=== PATIENT | female | born 1935 | race Caucasian/White ===

== ENCOUNTER → 2017-08-24 | Outpatient (CLI) | payer OTHER ==
[~2017-08-24] MED LIST: ACETAMINOPHEN325 M1 PO; APAP500 PO; ASPIR 8181 MG PO; BACTRIM DS TAB1 EACH PO; BENADRYL25 MG PO; CELEBREX 200 M200 M1 PO; CELEBREX 200 M200 MG PO; CENTRUM SILVER1 EAC4 PO; COLACE100 MG PO; COREG6.25 MG PO; COUMADIN 2.5MG2.5 M1 PO; COUMADIN 5 MG TA5 M1 PO; COZAAR 25 MG TA25 M1 PO; DIOVAN160 MG PO; ELIQUIS5 MG PO; ENDUR-ACIN500 MG PO; FAMOTIDINE 20 M20 MG PO; FISH OIL 1,0001 EAC5 PO; FISH OIL 1,0001 EAC7 PO; KEFLEX500 M1 PO; KLOR-CON 1010 MEQ PO; LASIX 20 MG TAB20 MG PO; LASIX 40 MG TAB40 M1 PO; LIPITOR40 MG PO; MAG DELAY64 MG PO; MAG OX PO; MECLIZINE HCL25 M1 PO; MEDROL DOSPAK21 TA1 PO; MULTIVITAMINS PO; MYLANTA 12 OZ355 M1 PO; NIACIN 500 MG500 M1 PO; NORVASC5 MG PO; PILOCARPINE HCL5 M1 PO; PREDNISONE 10 M10 M1 PO; PRILOSEC 20 MG20 MG PO; SLO-NIACIN250 MG PO; SORINE 80 MG TA80 M1 PO; SORINE 80 MG TA80 MG PO; TOPROL XL100 MG PO; TOPROL XL50 MG PO; TRAMADOL 50 MG50 MG PO; TYLENOL325 MG PO; VITAMINC500 PO; VITCB500GO PO; VOLTAREN GEL 1100 G2 TOP; [UNRECOGNIZED DRUG - OTHER] PO
--- NOTE | ~2017-08-24 | HC ---
[facility] [place] [address] CONSULTATION Name: KAJAL GRIFFITH [id number] Admission: 08/24/17 Attend Phys: Denzel Leahy DO Discharge: Date of : 33 Report #: [id number] THIS REPORT FOR: //name// CC: Denzel PACHECO PCP DATE OF SERVICE: 08/24/2017 CHIEF COMPLAINT: Ulceration on the right foot. HISTORY OF PRESENT ILLNESS: This is an 82-year-old female patient who I have been asked to see today in the senior's clinic. She has had a chronic ulceration on her right foot near the first MTP joint, the original onset is unknown. She has some deformity to her foot and has had chronic ulceration with callus formation that has been noted. She was seen today by Layla Glynn, who has requested Wound Care consultation. PAST MEDICAL HISTORY: Positive for Sjogren's, history of chronic atrial fibrillation, congestive heart failure, previous cardiac arrest and was hospitalized in 07/2017. She denies pain, but does note some odor from her foot. She is uncertain as to how to care for and I have been asked to see her in this regard. ALLERGIES: CODEINE AND SULFA. MEDICATIONS: Include omega-3 fish oil, atorvastatin, Celebrex, pilocarpine, vitamin C, Ultram, Diovan, niacin, multivitamin with minerals, Mag-Ox, as well as Eliquis, carvedilol, amlodipine, Lasix, potassium chloride. SOCIAL HISTORY: Negative for current alcohol or tobacco use. FAMILY HISTORY: Noncontributory. REVIEW OF SYSTEMS: CONSTITUTIONAL: The patient denies fever, chills, or weight loss. NEUROLOGICAL: The patient has focal weakness. ENT: The patient denies earache, nasal drainage, or sore throat. CARDIOVASCULAR: The patient denies chest pain, palpitations, or diaphoresis. PULMONARY: The patient denies cough or shortness of breath. GASTROINTESTINAL: The patient denies nausea, vomiting, diarrhea, or abdominal pain. ORTHOPEDIC: The patient does note ulceration on her right foot. Other systems in a 12-point review of systems are negative. PHYSICAL EXAMINATION: [facility] [address] [place] [address] CONSULTATION Name: AKJAL GRIFFITH Room #: REG [facility]#: [id number] Admission: 08/24/17 Attend Phys: Denzel Leahy DO Discharge: Date of : 33 Report #: [id number] VITAL SIGNS: Today include blood pressure 141/64, temperature is 97.7, pulse 67, respiratory rate 18. GENERAL: This is a chronically ill-appearing female patient appears to be in minimal distress. HEENT: Normocephalic. Nose and throat clear. She is hard of hearing. NECK: Supple. LUNGS: Clear. HEART: Irregular rate and rhythm without murmur. ABDOMEN: Soft, bowel sounds present. EXTREMITIES: Demonstrate diminished yet somewhat palpable distal pulses. She has slightly delayed capillary refill involving her right great toe. She has ulceration on the plantar aspect of the right first MTP. It is covered with callus and some necrotic tissue, which I have debrided and documented this in a separate notation. The base once debridement was accomplished is clean and granulating. Culture was obtained. CLINICAL IMPRESSION: 1. Ulceration of the plantar aspect of the right foot at the first metatarsophalangeal joint. 2. Deformity of the right foot with excessive dorsiflexion of the right great toe at the metatarsophalangeal joint. 3. Sjogren disease. 4. Coronary artery disease. 5. Atrial fibrillation, on chronic anticoagulation with Eliquis. RECOMMENDATIONS: At this point in time, cultures and sensitivities have been obtained. We will place her on doxycycline 100 mg b.i.d. empirically. Recommend topical silver alginate and a secondary gauze dressing. I would like to follow her up in the clinic in approximately 10-14 days. No imaging undertaken at this time. I appreciate being asked to see her in consultation. <ELECTRONICALLY SIGNED> By: Bryce Rangel MD 08/26/17 0853 1709 0040 Bryce Rangel MD /nt
--- NOTE | ~2017-08-24 | P ---
[facility] [address] PROCEDURE REPORT Name: KAJAL GRIFFITH Room #: REG [facility]#: [id number] Admission: 08/24/17 Attend Phys: Denzel Leahy DO Discharge: Date of : 33 Report #: [id number] THIS REPORT FOR: //name// CC: Denzel Leahy NO PCP DATE OF SERVICE: 08/24/2017 CHIEF COMPLAINT: Ulceration of the right foot. 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 PROCEDURE PERFORMED: Sharp surgical debridement of ulceration of the right foot. FINDINGS: None. SPECIMENS OBTAINED: Culture and sensitivity. ESTIMATED BLOOD LOSS: 1 mL. PREPROCEDURE MEASUREMENT: 3 cm x 2.5 cm x 0.5 cm. POSTPROCEDURE MEASUREMENT: 3.8 cm x 2.9 cm x 0.5 cm. DESCRIPTION OF PROCEDURE: After appropriate verbal and informed consent was obtained with the patient, I have used a #15 bladed scalpel and tissue forceps. The area was prepped and draped in the usual sterile fashion. No anesthesia was required. I have used a scalpel and forceps to sharply debride the necrotic tissue including skin and necrotic subcutaneous tissue down to a healthy clean bleeding base. Hemostasis was obtained with direct pressure. Culture and sensitivity was obtained from the deeper base of the wound. The wound appeared to be fairly clean and granulating once the necrotic tissue was removed. The patient tolerated the procedure well. <ELECTRONICALLY SIGNED> By: Bryce Rangel MD 08/26/17 0853 1723 2357 Bryce Rangel MD /nt
== END ==
LOC: SEN 08:51
DX: S92.102A Unspecified fracture of left talus, initial encounter for closed fracture (principal); M35.00 Sjogren syndrome, unspecified; R53.81 Other malaise; X58.XXXA Exposure to other specified factors, initial encounter; Y93.89 Activity, other specified; Y92.89 Other specified places as the place of occurrence of the external cause; Y99.8 Other external cause status

== ENCOUNTER 2017-09-02 10:37 | Emergency (ER) | payer OTHER ==
[~2017-09-02] VITALS: Ht 160 cm; Wt 68.0 kg
--- NOTE | ~2017-09-02 | EKG ---
[address] [address] ELECTROCARDIOGRAM REPORT Name: KAJAL GRIFFITH Room #: [facility]#: [id number] Admission: 09/02/17 Attend Phys: Discharge: 09/02/17 Date of : 33 Report #: [id number] THIS REPORT FOR: //name// [facility] ED Test Date: 2017-09-02 Test Time: 11:05:41 Pat Name: KAJAL GRIFFITH Department: Room: Gender: F Radiographic Technologist: cwroslyn : 1935 Requested By: Christina Shelby Order Number: [id number] MD: Aamir Rey Measurements Intervals [place] Rate: 58 P: [place]: QRS: -49 QRSD: 130 T: 35 QT: 449 QTc: 442 Interpretive Statements Atrial fibrillation Compared to ECG 07/11/2017 09:39:38 No significant changes Electronically Signed On 09-03-2017 8:27:16 MOTORCYCLE REPAIRER by Aamir Rey [email or web address] <ELECTRONICALLY SIGNED> By: Aamir Rey MD 09/03/17 0827 1105 1105 MD ANDREA Osborn
[~2017-09-02 10:37] MED LIST changes: -ASPIR 8181 MG PO; -COZAAR 25 MG TA25 M1 PO; -KEFLEX500 M1 PO; -LASIX 20 MG TAB20 MG PO; -TYLENOL325 MG PO; -VOLTAREN GEL 1100 G2 TOP
[2017-09-02 10:50] LABS: HEMATOCRIT 33.1 % (37.0-47.0); HEMOGLOBIN 11.3 gm/dL (12.0-15.0); MCH 32.5 pg (26.0-34.0); MCHC 34.2 g/dL (28.0-37.0); MCV 95.1 fL (80.0-100.0); PLATELET COUNT 181 thou/uL (150-400); RBC 3.48 mil/uL (4.20-5.00); RDW 12.1 % (10.5-14.5); WBC 5.9 thou/uL (4.0-11.0)
[2017-09-02 10:59] LABS: ANION GAP 4 mmol/L (7-16); BUN 28 mg/dL (7-18); CALCIUM 9.7 mg/dL (8.5-10.1); CHLORIDE 99 mmol/L (98-107); CO2 31 mmol/L (21-32); CREATININE 0.9 mg/dL (0.6-1.0); GLUCOSE 90 mg/dL (74-106); POTASSIUM 4.3 mmol/L (3.5-5.1); SODIUM 134 mmol/L (136-145)
[2017-09-02 11:08] LABS: ALBUMIN 3.4 g/dL (3.4-5.0); SGOT 29 U/L (15-37); SGPT 27 U/L (30-65); TOTAL BILIRUBIN 0.6 mg/dL (<0.1-1.0); TOTAL PROTEIN 7.6 g/dL (6.4-8.2); TROPONIN-I < 0.04 ng/mL (<0.06)
[2017-09-02 11:30] LABS: ABSOLUTE NEUTROPHILS 4.4 thou/uL (1.4-8.2)
[2017-09-02 13:32] VITALS: BP 148/75
[2017-09-10] MEDS ORDERED: COZAAR 25 MG TA25 M1 PO (13:37)
[2017-09-10] MEDS ORDERED: ASPIR 8181 MG PO (13:38)
[2017-09-10] MEDS ORDERED: LASIX 20 MG TAB20 MG PO (13:38)
== END 2017-09-02 13:32 | disposition home or self-care (01) ==
LOC: ER 10:37
PROVIDERS: Physician Assistant
DX: R06.00 Dyspnea, unspecified (principal); I48.2 Chronic atrial fibrillation; G62.9 Polyneuropathy, unspecified; Z90.710 Acquired absence of both cervix and uterus; Z88.5 Allergy status to narcotic agent; Z88.2 Allergy status to sulfonamides

== ENCOUNTER → 2017-09-07 | Outpatient (CLI) | payer OTHER ==
[~2017-09-07] MED LIST changes: +ASPIR 8181 MG PO; +COZAAR 25 MG TA25 M1 PO; +KEFLEX500 M1 PO; +LASIX 20 MG TAB20 MG PO; +TYLENOL325 MG PO; +VOLTAREN GEL 1100 G2 TOP
== END ==
LOC: SEN 11:53
DX: I48.91 Unspecified atrial fibrillation (principal)

== ENCOUNTER → 2017-09-07 | Outpatient (CLI) | payer OTHER | LOC: HYPER 06:52 | DX: L97.512 Non-pressure chronic ulcer of other part of right foot with fat layer exposed (principal); G62.9 Polyneuropathy, unspecified; L84 Corns and callosities; I11.0 Hypertensive heart disease with heart failure; I50.9 Heart failure, unspecified; I48.2 Chronic atrial fibrillation; E78.5 Hyperlipidemia, unspecified; Z87.891 Personal history of nicotine dependence; Z90.710 Acquired absence of both cervix and uterus ==

== ENCOUNTER → 2017-09-21 | Outpatient (CLI) | payer OTHER | LOC: HYPER 09:40 | DX: L97.512 Non-pressure chronic ulcer of other part of right foot with fat layer exposed (principal); G90.09 Other idiopathic peripheral autonomic neuropathy; I48.2 Chronic atrial fibrillation; I11.0 Hypertensive heart disease with heart failure; I50.9 Heart failure, unspecified; E78.5 Hyperlipidemia, unspecified; Z89.422 Acquired absence of other left toe(s); Z90.710 Acquired absence of both cervix and uterus; Z96.612 Presence of left artificial shoulder joint; Z87.891 Personal history of nicotine dependence ==

== ENCOUNTER → 2017-09-21 | Outpatient (CLI) | payer OTHER | LOC: SEN 09:05 | DX: N18.9 Chronic kidney disease, unspecified (principal); I73.9 Peripheral vascular disease, unspecified; F41.9 Anxiety disorder, unspecified; M35.00 Sjogren syndrome, unspecified ==

== ENCOUNTER 2017-12-24 16:12 | Inpatient (IN) | payer OTHER ==
[~2017-12-24] VITALS: Ht 160 cm; Wt 73.0 kg
--- NOTE | ~2017-12-24 | EEG ---
[facility] [place] [address] ELECTROENCEPHALOGRAM Name: KAJAL GRIFFITH Room #: 451-P ADM IN M.R.#: [id number] Admission: 12/24/17 Attend Phys: Adan Paul MD Discharge: Date of : 33 Report #: [id number] THIS REPORT FOR: //name// [facility] DATE OF SERVICE: 12/25/2017 This patient is evaluated for weakness and somnolence. EEG was done by placing the electrodes by standard 10-20 system of electrode placement. Both referential and sequential montages were used for recording. Background activity in this patient's EEG is about 7-8 Hz and 30 microvolt. There is a symmetrical activity. Photic stimulation is unremarkable. Throughout the record, no active epileptiform activity was noticed and the patient was somnolent throughout the record. IMPRESSION: This is an abnormal electroencephalogram because it is disorganized and poorly formed. That is a nonspecific abnormality, which can occur with encephalopathy, effect of psychotropic medication, dementia, etc. Clinical correlation is recommended. <ELECTRONICALLY SIGNED> By: Niko Harmon MD 12/27/172021 24 30 Niko Harmon MD /nt
--- NOTE | ~2017-12-24 | EKG ---
[address] [place] [address] ELECTROCARDIOGRAM REPORT Name: KAJAL GRIFFITH Dilma Room #: 451-P ADM IN .R.#: [id number] Admission: 12/24/17 Attend Phys: Adan Paul MD Discharge: Date of : 33 Report #: [id number] THIS REPORT FOR: //name// [facility] ED Test Date: 2017-12-24 Test Time: 16:19:10 Pat Name: KAJAL GRIFFITH Department: Room: Gender: F Medical Advisor: FLORINDA : 1935 Requested By: Narcisa Freeman Order Number: [id number] MD: Aamir Rey Measurements Intervals [place] Rate: 94 P: [place]: QRS: -52 QRSD: 117 T: 103 QT: 346 QTc: 433 Interpretive Statements Atrial fibrillation LVH with IVCD, LAD and secondary repol abnrm Baseline wander in lead(s) V3 Compared to ECG 09/02/2017 11:05:41 Intraventricular conduction delay now present Left ventricular hypertrophy now present Early repolarization now present Electronically Signed On 12-25-2017 7:51:45 CDT by Aamir Rey [email or web address] <ELECTRONICALLY SIGNED> By: Aamir Rey MD 12/25/17 0751 1619 1619 Aamir Rey MD /EPI
--- NOTE | ~2017-12-24 | HC ---
[facility] [place] [address] CONSULTATION Name: KAJAL GRIFFITH Room #: 451-P ADM IN M.R.#: [id number] Admission: 12/24/17 Attend Phys: Adan Paul MD Discharge: Date of : 33 Report #: [id number] THIS REPORT FOR: //name// [facility] DATE OF SERVICE: 12/25/2017 HISTORY OF PRESENT ILLNESS: This is an 82-year-old female patient who was evaluated by me for what looks like speech difficulty. I discussed the patient with the night nurses and this morning's nurses. I talked to the patient and reviewed the records. The patient is being admitted with multiple symptoms. Neurological consultation is requested because of the possibility of stroke. She indicated she was confused, but she also had an infection for which she has antibiotics and then she had an allergic reaction and she got some Benadryl. So, she was confused and was having some speech difficulty. It has all become better. Some of the records indicate that she did have some facial problem with it, but that history is not documented. She is not having any associated headache. She indicates the confusion was severe when it happened, but it is better. She also had some slurring of the speech, which is still there. I do not know what the baseline is. No family member is available. She also felt weak all over the body. REVIEW OF SYSTEMS: Positive for multiple problems associated with present symptomatology. She had some headache. She was having some slurred speech. She has some difficulty with ambulation. She is very hard of hearing in the baseline, prior history of hysterectomy and myocardial infarction. She is on chronic anticoagulation. She had both shoulder replaced. She had a history of neuropathy and apparently a history of Sjogren's disease. I carried out the 14-point review of systems and this was a relevant 14-point review of systems. She did have some chest pain, but not much respiratory difficulty. She did not have much GI or symptoms. She is not complaining of significant back pain. She does have some fever. There are no new dermatological, hematological, psychiatric, throat symptoms. She did have allergic reaction. PAST MEDICAL HISTORY: Positive for PR. FAMILY HISTORY: Negative for early age stroke. SOCIAL HISTORY: She does not smoke. PHYSICAL EXAMINATION: The patient's examination indicate higher function is very difficult to carry out because the patient is very hard of hearing. She could tell me what month it is, but did not tell me the exact date. She knows what hospital she is in. Her memory and fund of knowledge is somewhat [facility] [address] [place] [address] CONSULTATION Name: KAJAL GRIFFITH Room #: 451-P [facility] IN M.R.#: [id number] Admission: 12/24/17 Attend Phys: Adan Paul MD Discharge: Date of : 33 Report #: [id number] diminished. She does have hesitation, so her speech may be impaired, but she also may have some aphasia, it is difficult to tell, but hesitation of the speech is definitely there. Cranial nerve examination 2-12 was attempted. I do not see any facial weakness. Her cooperation is not enough to do any good visual field evaluation. I could not do the fundus examination in this patient because she could not cooperate. She moves all 4 extremities. She is restricted in both shoulders that is her baseline. Her reflexes are diminished. I tried to do the position sense and she is so hard of hearing, she could not understand what I was saying. Her tone looks unremarkable. There is no cerebellar sign. She is moderately built individual who does not have any dysmorphic features of eyes, ears and face. Her hearing is markedly impaired. Her vision is intact. Pulses are difficult to feel and there may be minimum edema. Heart is irregular consistent with history of atrial fibrillation, no respiratory difficulty or rhonchi was noticed. Blood pressure is 152/70, respirations 16, pulse is 91, temperature is 102. LABORATORY DATA: White count is 11.0 and the last sodium was 130. IMPRESSION: This patient is complaining of symptom which can be because of encephalopathy or stroke. Encephalopathy is being considered because of allergic reaction and other problem she has, possibility of dominant hemispheric cerebrovascular accident need to be excluded. So far, the workup is unremarkable, but MRI is pending. She is slightly hyponatremic and that may also contribute to her symptoms. RECOMMENDATIONS: I discussed the situation with the patient. Her anticoagulation was held. From neurological perspective, it would be okay to restart her on anticoagulation because even if she had a stroke, it will be a small stroke as it is not seen on the CT, and if she had a stroke on anticoagulation, she will be on a very high risk of having a stroke without anticoagulation. I have asked the nurses to talk to the admitting doctor and if they want to restart the anticoagulation will be okay and hopefully we will get the MRI done to clarify the number further. All of it was discussed with the patient and she is agreeable with this plan. <ELECTRONICALLY SIGNED> By: Nkio Harmon MD 12/27/17 2020 0840 44 Niko Harmon MD /nt
--- NOTE | ~2017-12-24 | 2DMMODE ---
[facility] [address] [place] [address] 2 D/M-MODE ECHOCARDIOGRAM Name: KAJAL GRIFFITH Room #: 451-P [facility] IN [facility].#: [id number] Admission: 12/24/17 Attend Phys: Adan Paul MD Discharge: Date of : 33 Date of Service: 12/28/17 0950 Report #: [id number] THIS REPORT FOR: //name// APPROVED REPORT Study performed: 12/28/2017 08:03:09 EXAM: Comprehensive 2D, Doppler, and color-flow Echocardiogram Patient Location: Bedside Room #: 135 Status: 72 BSA: 1.76 HR: 86 bpm BP: 135/72 mmHg Other Information Study Quality: Good Indications Eval for pulm htn, history of ASD closure 2D Dimensions RVDd: 40.24 mm LVEF(%): 36.13 (>50%) IVSd: 12.54 (7-11mm) LVOT Diam: 22.76 (18-24mm) LVDd: 43.63 mm PWd: 12.09 (7-11mm) Ascending Ao: 32.95 (22-36mm) LVDs: 36.13 (25-40mm) Aortic Root: 31.41 mm IVC: 22.00 mm Krishna's LVEF: 36.13 % Volumes Left Atrial Volume (Systole) Single Plane 4CH: 130.63 mL Single Plane 2CH: 94.11 mL LA ESV Index: 68.00 mL/m2 Aortic Valve AoV Peak Jn.: 1.25 m/s AO Peak Gr.: 6.23 mmHg LVOT Max P.51 mmHg LVOT Max V: 0.61 m/s HUDSON Vmax: 2.00 cm2 Mitral Valve MV Decel. Time: 177.85 ms MV E Max Jn.: 0.82 m/s IVRT: 100.35 ms [facility] [place] [address] 2 D/M-MODE ECHOCARDIOGRAM Name: KAJAL GRIFFITH Room #: 451-P [facility] IN ..#: [id number] Admission: 12/24/17 Attend Phys: Adan Paul MD Discharge: Date of : 33 Date of Service: 12/28/17 0950 Report #: [id number] Pulmonary Valve PV Peak Jn.: 0.67 m/s PV Peak Gr.: 1.80 mmHg Pulmonary Vein P Vein S: 0.43 m/s P Vein D: 0.72 m/s P Vein S/D Ratio: 0.60 Tricuspid Valve TR Peak Jn.: 3.32 m/s RAP Estimate: 10.00 mmHg TR Peak Gr.: 44.07 mmHg PA Pressure: 54.00 mmHg Left Ventricle The left ventricle is normal size. There is normal LV segmental wall motion. Mild concentric left ventricular hypertrophy. The left ventricular systolic function is normal. The left ventricular ejection fraction is within the normal range. LVEF is 50-55%. Right Ventricle The right ventricle is normal size. The right ventricular systolic function is normal. Atria Left atrium is severely dilated. Patient states a history of ASD closure 8-9 years ago. No shunting visualized by color doppler. Right atrium is severely dilated. Aortic Valve Mild aortic valve sclerosis. No aortic regurgitation is present. There is no aortic valvular stenosis. Mitral Valve Mitral valve leaflets are mildly thickened. Moderate mitral regurgitation No evidence of mitral valve stenosis. Tricuspid Valve The tricuspid valve is normal in structure. Moderate tricuspid regurgitation. PAP is estimated at 54 mmHg. Pulmonic Valve The pulmonary valve is normal in structure. Trace pulmonic regurgitation. Great Vessels [facility] [address] [place] [id number] 2 D/M-MODE ECHOCARDIOGRAM Name: KAJAL GRIFFITH Room #: 451-P [facility] IN [facility]#: [id number] Admission: 12/24/17 Attend Phys: Adan Paul MD Discharge: Date of : 33 Date of Service: 12/28/17 0950 Report #: [id number] The aortic root is normal in size. IVC is mildly dilated and collapses >50% with inspiration. Pericardium There is no pericardial effusion. <Conclusion> The left ventricular systolic function is normal. There is normal LV segmental wall motion. LVEF 50-55%. Both atria are severely dilated. Percutaneous closure device seen across the atrial septum; no shunting seen Mild aortic valve sclerosis. No aortic regurgitation or stenosis Mitral valve leaflets are mildly thickened. Moderate mitral regurgitation Moderate tricuspid regurgitation. Pulmonary artery pressure estimated at 54 mmHg. There is no pericardial effusion. <ELECTRONICALLY SIGNED> By: Duy Sandoval MD, FACC 12/28/1750 9 9 Duy Sandoval MD, FACC /INF
[~2017-12-24 16:12] MED LIST changes: -KEFLEX500 M1 PO; -TYLENOL325 MG PO; -VOLTAREN GEL 1100 G2 TOP
[2017-12-24 16:13] VITALS: BP 145/69
[2017-12-24 16:39] LABS: ABSOLUTE NEUTROPHILS 8.9 thou/uL (1.4-8.2); BASOPHILS 0.5 % (0.0-2.0); EOSINOPHILS 0.4 % (0.0-3.0); HEMATOCRIT 36.9 % (37.0-47.0); HEMOGLOBIN 12.6 gm/dL (12.0-15.0); LYMPHOCYTES 6.9 % (24.0-44.0); MCHC 34.2 g/dL (28.0-37.0); MCV 93.8 fL (80.0-100.0); MONOCYTES 6.8 % (1.0-8.0); PLATELET COUNT 170 thou/uL (150-400); POLYS 85.4 % (36.0-66.0); RBC 3.93 mil/uL (4.20-5.00); RDW 12.4 % (10.5-14.5); WBC 10.4 thou/uL (4.0-11.0)
[2017-12-24 16:48] LABS: ANION GAP 10 mmol/L (7-16); BUN 20 mg/dL (7-18); CALCIUM 9.3 mg/dL (8.5-10.1); CHLORIDE 99 mmol/L (98-107); CO2 25 mmol/L (21-32); CREATININE 0.8 mg/dL (0.6-1.0); GLUCOSE 106 mg/dL (74-106); POTASSIUM 4.1 mmol/L (3.5-5.1); SODIUM 134 mmol/L (136-145)
[2017-12-24 16:57] LABS: TROPONIN-I < 0.04 ng/mL (<0.06)
[2017-12-24 17:14] VITALS: BP 145/69
[2017-12-24 17:45] LABS: URINE BILIRUBIN NEGATIVE (Negative); URINE BLOOD NEGATIVE (Negative); URINE CLARITY CLEAR; URINE COLOR YELLOW; URINE GLUCOSE-RANDOM* NEGATIVE (Negative); URINE KETONES TRACE (Negative); URINE LEUKOCYTES TRACE (Negative); URINE NITRITE NEGATIVE (Negative); URINE PROTEIN (DIPSTICK) NEGATIVE (Negative); URINE SPECIFIC GRAVITY 1.015 (1.005-1.035); URINE UROBILINOGEN 0.2 E.U./dl (0.2-1.0)
[2017-12-24 18:38] VITALS: BP 169/88
[2017-12-24 19:13] VITALS: BP 156/71
[2017-12-25 04:34] VITALS: BP 140/50
[2017-12-25 05:24] LABS: HEMATOCRIT 35.8 % (37.0-47.0); HEMOGLOBIN 12.4 gm/dL (12.0-15.0); MCH 32.3 pg (26.0-34.0); MCHC 34.5 g/dL (28.0-37.0); MCV 93.6 fL (80.0-100.0); RBC 3.83 mil/uL (4.20-5.00); RDW 12.3 % (10.5-14.5)
[2017-12-25 05:40] LABS: ANION GAP 9 mmol/L (7-16); BUN 14 mg/dL (7-18); CHLORIDE 96 mmol/L (98-107); CO2 25 mmol/L (21-32); CREATININE 0.9 mg/dL (0.6-1.0); GLUCOSE 119 mg/dL (74-106); POTASSIUM 3.4 mmol/L (3.5-5.1); SODIUM 130 mmol/L (136-145)
[2017-12-25 07:46] LABS: MAGNESIUM 1.6 mg/dL (1.8-2.4); TROPONIN-I < 0.04 ng/mL (<0.06)
[2017-12-25 08:04] VITALS: BP 152/70
[2017-12-25 15:36] LABS: TSH 0.784 uIU/mL (0.358-3.740)
[2017-12-25 15:46] LABS: CHOLESTEROL 112 mg/dL (<200); HDL CHOLESTEROL 68 mg/dL (>40); LDL CHOLESTEROL 37 mg/dL (<100); TC:HDL 1.6 Ratio (Not establshd); TRIGLYCERIDE 39 mg/dL (<150); VLDL 8 mg/dL (<40)
[2017-12-25 16:00] VITALS: BP 122/58
[2017-12-25 16:15] LABS: FOLIC ACID 34.7 ng/mL (8.6-58.9)
[2017-12-25 19:28] VITALS: BP 144/67
[2017-12-26 03:23] VITALS: BP 140/55
[2017-12-26 04:58] LABS: BASOPHILS 0.5 % (0.0-2.0); EOSINOPHILS 0.2 % (0.0-3.0); HEMATOCRIT 37.2 % (37.0-47.0); HEMOGLOBIN 12.6 gm/dL (12.0-15.0); LYMPHOCYTES 8.5 % (24.0-44.0); MCH 31.8 pg (26.0-34.0); MCHC 33.9 g/dL (28.0-37.0); MCV 93.9 fL (80.0-100.0); MONOCYTES 10.1 % (1.0-8.0); PLATELET COUNT 146 thou/uL (150-400); POLYS 80.7 % (36.0-66.0); RBC 3.96 mil/uL (4.20-5.00); RDW 12.4 % (10.5-14.5); WBC 11.2 thou/uL (4.0-11.0)
[2017-12-26 05:12] LABS: CREATININE 0.8 mg/dL (0.6-1.0); POTASSIUM 3.1 mmol/L (3.5-5.1)
[2017-12-26 05:50] LABS: LARGE PLATELETS RARE
[2017-12-26 08:30] VITALS: BP 143/68
[2017-12-26 16:07] VITALS: BP 138/70
[2017-12-26 20:00] VITALS: BP 117/58
[2017-12-27 00:30] VITALS: BP 131/61
[2017-12-27 04:02] VITALS: BP 140/78
[2017-12-27 04:16] LABS: CALCIUM 8.5 mg/dL (8.5-10.1); CREATININE 0.8 mg/dL (0.6-1.0); MAGNESIUM 1.9 mg/dL (1.8-2.4); POTASSIUM 3.7 mmol/L (3.5-5.1)
[2017-12-27 08:00] VITALS: BP 154/73
[2017-12-27 16:00] VITALS: BP 121/64
[2017-12-27 17:43] VITALS: BP 154/73
[2017-12-27 19:44] VITALS: BP 139/75
[2017-12-28 04:20] LABS: CALCIUM 8.8 mg/dL (8.5-10.1); CREATININE 0.7 mg/dL (0.6-1.0); POTASSIUM 4.1 mmol/L (3.5-5.1)
[2017-12-28 04:21] VITALS: BP 144/82
[2017-12-28 04:22] VITALS: BP 135/72; BP 138/63
[2017-12-28 04:23] LABS: BASOPHILS 0.4 % (0.0-2.0); EOSINOPHILS 2.3 % (0.0-3.0); HEMATOCRIT 34.5 % (37.0-47.0); HEMOGLOBIN 11.9 gm/dL (12.0-15.0); LYMPHOCYTES 8.6 % (24.0-44.0); MCH 32.1 pg (26.0-34.0); MCHC 34.5 g/dL (28.0-37.0); MCV 93.2 fL (80.0-100.0); MONOCYTES 9.8 % (1.0-8.0); PLATELET COUNT 182 thou/uL (150-400); POLYS 78.9 % (36.0-66.0); RDW 11.9 % (10.5-14.5); WBC 10.2 thou/uL (4.0-11.0)
[2017-12-28 08:00] VITALS: BP 147/66
[2017-12-28] MEDS ORDERED: KEFLEX500 M1 PO (13:40)
[2017-12-28 16:25] VITALS: BP 129/59
== END 2017-12-28 18:33 | DRG 871 ==
LOC: ER 16:12 → 4W 16:55 → EROBS 16:55 → 4W 18:47
PROVIDERS: Emergency Medicine; Hospitalist
DX: A41.9 Sepsis, unspecified organism (principal); G93.40 Encephalopathy, unspecified; E87.1 Hypo-osmolality and hyponatremia; G45.9 Transient cerebral ischemic attack, unspecified; E46 Unspecified protein-calorie malnutrition; Q21.1 Atrial septal defect; G62.9 Polyneuropathy, unspecified; I48.2 Chronic atrial fibrillation; Z96.612 Presence of left artificial shoulder joint; I25.10 Atherosclerotic heart disease of native coronary artery without angina pectoris; S91.301A Unspecified open wound, right foot, initial encounter; H91.90 Unspecified hearing loss, unspecified ear; M35.00 Sjogren syndrome, unspecified; T78.40XA Allergy, unspecified, initial encounter; E78.5 Hyperlipidemia, unspecified; R26.9 Unspecified abnormalities of gait and mobility; I11.0 Hypertensive heart disease with heart failure; I50.9 Heart failure, unspecified; F32.9 Major depressive disorder, single episode, unspecified; L97.519 Non-pressure chronic ulcer of other part of right foot with unspecified severity; X58.XXXA Exposure to other specified factors, initial encounter; I25.2 Old myocardial infarction; Z88.2 Allergy status to sulfonamides; Z88.8 Allergy status to other drugs, medicaments and biological substances; Z79.82 Long term (current) use of aspirin; Z79.899 Other long term (current) drug therapy; Z89.422 Acquired absence of other left toe(s); Z90.710 Acquired absence of both cervix and uterus; Z90.49 Acquired absence of other specified parts of digestive tract; Y93.89 Activity, other specified; Y92.89 Other specified places as the place of occurrence of the external cause; Y99.8 Other external cause status; Z79.01 Long term (current) use of anticoagulants; Z68.28 Body mass index [BMI] 28.0-28.9, adult
CPT/HCPCS: 10045

== ENCOUNTER 2017-12-28 15:10 | Inpatient (IN) | payer OTHER ==
[~2017-12-28] VITALS: Ht 160 cm; Wt 67.8 kg
--- NOTE | ~2017-12-28 | PLAN ---
[facility] [place] [address] REHAB UNIT PLAN OF CARE Name: KAJAL GRIFFITH Room #: 511-P ADM IN M.R.#: [id number] Admission: 12/28/17 Attend Phys: Celestino Ferguson MD Discharge: Date of : 33 Report #: [id number] THIS REPORT FOR: //name// CC: Celestino Jacob DATE OF SERVICE: 12/31/2017 The patient is seen back today in followup. She is in no distress. Last recorded temperature 98.6, pulse 96, respirations 18, blood pressure 135/75. No focal calf swelling. 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 She has been working in therapies with bed mobility, standby assistance. Transfers are min assist, which is an improvement from mod assist. She is closer to contact guard with short distance ambulation 75 feet with a front-wheeled walker, occupational therapy with lower body dressing, moderate assistance. In speech therapy, she has mild to moderate comprehensive deficits. ASSESSMENT: 1. Medical complex with generalized debilitation. 2. Gait instability. 3. Medication reaction apparently to Bactrim. 4. Chronic atrial fibrillation, previously on anticoagulation. 5. Hypertension. 6. Hyperlipidemia. 7. Sjogren syndrome. 8. Past history of myocardial infarction x 2. 9. Premorbid history of neuropathy. 10. Cardiac arrest x 2. 11. Left shoulder replacement in 2008. PLAN: The overall plan of care is based on the preadmission screen, post-admission physician evaluation and information garnered from therapy assessments. 1. Estimated length of stay is probably at least 10 days to 2 weeks. 2. Medical prognosis is reasonably good. 3. Anticipated interventions includes the interdisciplinary acute inpatient rehabilitation program with the goal of maximizing the patient's functional independence, so that she can hopefully return back to her prior living situation. 4. Anticipated functional outcomes would be for the patient to become modified independent with transfers, mobility and ADLs, so she can return back to the home setting. 5. Discharge destination would be back to the home setting. 6. Expected therapy by discipline includes PT and OT as well as speech therapy, which was added to further evaluate cognition. At this point, she will have PT, [place] [address] REHAB UNIT PLAN OF CARE Name: KAJAL GRIFFITH Room #: 511-P [facility] IN [facility]#: [id number] Admission: 12/28/17 Attend Phys: Celestino Ferguson MD Discharge: Date of : 33 Report #: [id number] OT and speech 1 hour per day each five days a week throughout the duration of the acute inpatient rehabilitation stay. <ELECTRONICALLY SIGNED> By: Celestino Ferguson MD 01/07/18 1516 0923 1148 Celestino Ferguson MD /nt
--- NOTE | ~2017-12-28 | HC ---
[facility] [place] [address] CONSULTATION Name: KAJAL GRIFFITH Room #: 511-P ADM IN M.R.#: [id number] Admission: 12/28/17 Attend Phys: Celestino Ferguson MD Discharge: Date of : 33 Report #: [id number] THIS REPORT FOR: //name// CC: Celestino Jacob DATE OF SERVICE: 01/02/2018 NEUROBEHAVIORAL STATUS EXAMINATION ATTENDING PHYSICIAN: Celestino Ferguson MD FITTER HAND: Jimbo Hadley, PhD CLINICAL PRESENTATION: The patient is an 82-year-old female admitted to the rehab unit at [facility] for evaluation and treatment of mental status changes and difficulty with ambulation. She was initially assessed with concern for a possible CVA or TIA. The stroke workup was negative and her confusion and disorientation improved. The disorientation was attributed to a medication. PAST MEDICAL HISTORY: Includes atrial fibrillation with cardioversion, chronic AFib, atrial septal defect repair, Sjogren disease, myocardial infarction in 1980 and in 2009, neuropathy, left shoulder replacement and cardiac arrest x 2. A complete description of her medical condition and history along with medications can be found in her medical record. Neuropsychological consultation was requested to provide assistance in the assessment of cognitive and emotional status and to provide recommendations and services. The patient lives alone in her own home. She is severely hard of hearing, which interferes with overall assessment and communication. She had 4 children. Two children have . Her in 2001. She reports having been independent with instrumental activities of daily living prior to this most recent deterioration. The patient indicates that she has discontinued driving. She is a high school graduate with 2 years of college. 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 TECHNIQUES UTILIZED: Clinical interview, review of medical records, staff consultation and behavioral observation, mini mental status exam 2 standard version and clock drawing. EXAMINATION FINDINGS: The patient was alert and cooperative with the assessment. She accurately described events surrounding her admission. There is no evidence of aphasia. She does not report auditory or visual hallucinations. The severity of her hearing interferes with communication. The patient was very tearful during my assessment and interview. She had [facility] [address] [place] [address] CONSULTATION Name: KAJAL GRIFFITH Room #: 511-P [facility] IN .R.#: [id number] Admission: 12/28/17 Attend Phys: Celestino Ferguson MD Discharge: Date of : 33 Report #: [id number] recently heard of the of a close friend. The patient indicates that the of her friend reminds her of previous losses that include the deaths of 2 children. She describes her symptoms to include occasional difficulty with word finding and poor sleep. She does not indicate difficulty with memory or appetite. She denies subjective depression or anxiety; however, her mood appeared depressed during the interview. Her performance on the MMSE 2 brief version was within normal limits with a raw score of 14-16. The patient was 1/3 for immediate recall of 3 items after a brief time delay and distraction. Her performance on the MMSE 2 standard version is within normal limits with a raw score 26 of 30. She was 4/5 for serial 7's. The patient had difficulty in copying a simple geometric design. Clock drawing was within normal limits. The patient is presenting with variability in neurocognitive functioning with deficits noted in immediate memory. 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 Further neuropsych assessment will be helpful in clarifying the severity of cognitive deficits. Increased supervision is likely to be necessary for her to maintain safety. She is wanting to return home. Family should assist in the management of medication and nutrition as she begins to transition to increase independence. Thank you very much for allowing me to provide the consultation on this patient. <ELECTRONICALLY SIGNED> By: Jimbo Hadley, PhD 01/03/18 1656 1410 50 Jimbo Hadley, PhD /nt
--- NOTE | ~2017-12-28 | H ---
[facility] [place] [address] HISTORY AND PHYSICAL Name: KAJAL GRIFFITH Room #: 511-P ADM IN ..#: [id number] Admission: 12/28/17 Attend Phys: Celestino Ferguson MD Discharge: Date of : 33 Report #: [id number] THIS REPORT FOR: //name// CC: Celestino Jacob DATE OF SERVICE: 12/28/2017 HISTORY AND PHYSICAL/POSTADMISSION PHYSICIAN EVALUATION HISTORY OF PRESENT ILLNESS: The patient is an 82-year-old white female who was originally admitted on 12/24/2017, when she presented to the Emergency Room with complaints of confusion and inability to walk. Concern was for possible TIA/CVA due to facial weakness, slurred speech. She was seen by Neurology with stroke workup negative. Her confusion improved/resolved for the most part and was felt secondary to a medication adverse reaction. She had been on Bactrim for right foot wound and developed the rash the evening prior to admission and took some Benadryl. She has a discharge diagnosis of allergic reaction, status post Bactrim. She also had electrolyte abnormalities with potassium and magnesium being replaced. She was monitored regarding atrial fibrillation. Neurology did not feel that she had any primary neurological etiology. The patient was noted to have a significant decline from her premorbid status as far as generalized weakness and functional abilities. She has not been admitted for acute in-hospital inpatient rehabilitation. PAST MEDICAL HISTORY: Atrial fibrillation with cardioversion in 2009, chronic atrial fibrillation, atrial septal defect repair, Sjogren's disease, myocardial infarct, 1981 and 2010, neuropathy, left shoulder replacement, cardiac arrest x 2. She has had atrial septal defect repair. PAST SURGICAL HISTORY: As noted above. ALLERGIES: TRIMETHOPRIM, SULFA, CODEINE, SULFAMETHOXAZOLE. HABITS: No history of tobacco or alcohol abuse. SOCIAL HISTORY: Lives in a raised ranch house, enters from the garage 12 steps to the main living area, laundry is in the basement which is another flight of stairs, has handrails, premorbidly utilized a quad cane, independent for all ADLs at home. Quit driving a year ago. REVIEW OF SYSTEMS: No current complaints of chest pain, shortness of breath or abdominal discomfort. Has complaints of overall generalized weakness. Notes some overall stiffness. No numbness. PHYSICAL EXAMINATION: [facility] [address] [place] [address] HISTORY AND PHYSICAL Name: KAJAL GRIFFITH Room #: 511-P [facility] IN .R.#: [id number] Admission: 12/28/17 Attend Phys: Celestino Ferguson MD Discharge: Date of : 33 Report #: [id number] GENERAL: Pleasant 82-year-old white female in no obvious distress. VITAL SIGNS: Last recorded temperature 98.8, pulse 91, respirations 20, blood pressure 124/73. The patient is alert. HEAD, EYES, EARS, NOSE, AND THROAT: Appeared to be benign. NEUROLOGIC: Cranial nerves are grossly intact. She follows basic 1 step commands without difficulty. She is of slender build. Functional range of motion of both upper extremities. Strength is grade 4-/5. DTRs are trace to 1. Lower extremities, no focal calf swelling, functional range of motion with strength grade 4-/5. DTRs are trace. Functionally, she transfers with mod assist. Gait is mod assist 5 feet. In occupational therapy, she does need assistance for basic dressing activities. Speech therapy, mechanical soft all liquid diet. ASSESSMENT: An 82-year-old white female with the following problem list: 1. Medical complexity with generalized debilitation. 2. Gait instability. 3. Medication reaction apparently to Bactrim. 4. Chronic atrial fibrillation, previously on anticoagulation. 5. Hypertension. 6. Hyperlipidemia. 7. Sjogren syndrome. 8. Past history of myocardial infarction x 2. 9. Premorbid history of a neuropathy. 10. Cardiac arrest x 2. 11. Left shoulder replacement in 2008. PLAN: The patient is admitted for acute in-hospital inpatient rehabilitation. From a postadmission physician evaluation perspective, there are no relevant changes since the preadmission screening. Please see the above review of prior and current medical and functional conditions and comorbidities. Please see the patient's previous and current functional status. As far as risk of complications, the patient has multiple medical comorbidities as noted above. Initial plan of care involves the interdisciplinary acute inpatient rehabilitation program with the goal of maximizing the patient's functional independence, so that she can hopefully return back to her prior living situation. Measurable functional goals would be for her to become modified independent with transfers, mobility and ADLs and improved with gait. Prognosis is reasonably good with estimated length of stay probably at least 10 days to 2 weeks pending progress. Potential barriers would include her multiple medical comorbidities and decreased functional status. The patient meets diagnostic criteria for an acute in-hospital inpatient rehabilitation stay. She does meet the medical necessity criteria and we will have the farm consultant physicians continue to follow. She has the tolerance for [facility] [address] [place] [address] HISTORY AND PHYSICAL Name: KAJAL GRIFFITH Room #: 511-P [facility] IN M.R.#: [id number] Admission: 12/28/17 Attend Phys: Celestino Ferguson MD Discharge: Date of : 33 Report #: [id number] the rehab therapy program and has appropriate discharge goals back to the home setting. <ELECTRONICALLY SIGNED> By: Celestino Ferguson MD 01/07/18 1515 0830 1003 Celestino Ferguson MD /[facility]
--- NOTE | ~2017-12-28 | EKG ---
[address] [address] ELECTROCARDIOGRAM REPORT Name: KAJAL GRIFIFTH Room #: 511-P ADM IN M.R.#: [id number] Admission: 12/28/17 Attend Phys: Celestino Ferguson MD Discharge: Date of : 33 Report #: [id number] THIS REPORT FOR: //name// [facility] Test Date: 2018-01-07 Test Time: 10:18:07 Pat Name: KAJAL GRIFFITH Department: Room: [facility] Gender: F Lead Systems Developer: Shaunna HIGUERA : 1935 Requested By: Carol Cole Order Number: [id number] MD: Aamir Rey Measurements Intervals [place] Rate: 88 P: UT: QRS: -52 QRSD: 113 T: -1 QT: 382 QTc: 463 Interpretive Statements Atrial fibrillation Left anterior fascicular block Probable left ventricular hypertrophy Anterior Q waves, possibly due to LVH Compared to ECG 12/24/2017 16:19:10 Left anterior fascicular block now present Q waves now present Intraventricular conduction delay no longer present Early repolarization no longer present Electronically Signed On 01-07-2018 13:30:37 CDT by Aamir Rey [email or web address] <ELECTRONICALLY SIGNED> By: Aamir eRy MD 01/07/18 1330 1018 1018 Aamir Rey MD /EPI
--- NOTE | ~2017-12-28 | HC ---
[facility] [place] [address] CONSULTATION Name: KAJAL GRIFFITH Room #: 511-P ADM IN .R.#: [id number] Admission: 12/28/17 Attend Phys: Celestino Ferguson MD Discharge: Date of : 33 Report #: [id number] THIS REPORT FOR: //name// CC: Celestino Jacob DATE OF SERVICE: 12/28/2017 CHIEF COMPLAINT: Foot ulceration. HISTORY OF PRESENT ILLNESS: This is an 82-year-old female patient who was admitted for some speech difficulty. She is noted to have an ulceration on the plantar aspect of her right foot and I have been asked to see her with regard to wound care. PAST MEDICAL HISTORY: The patient's past medical history is positive for previously known coronary artery disease; has a history of atrial fibrillation, status post cardioversion in 2009; previous atrial septal defect repair; previous left third toe amputation; Sjogren's disease; previous cholecystectomy and previous shoulder replacement. SOCIAL HISTORY: Negative for alcohol or tobacco use. FAMILY HISTORY: Noncontributory. MEDICATIONS: Include vitamin C, Tylenol, Lipitor, Celebrex, Ultram, Centrum Silver, Mag-Ox, Cozaar, aspirin, Lasix, potassium, carvedilol and Eliquis. ALLERGIES: CODEINE AND SULFA. REVIEW OF SYSTEMS: CONSTITUTIONAL: The patient denies fever, chills or weight loss. NEUROLOGICAL: The patient has had facial droop. ENT: The patient denies earache, nasal drainage or sore throat. CARDIOVASCULAR: The patient denies chest pain, palpitations or diaphoresis. PULMONARY: The patient denies cough or shortness of breath. GASTROINTESTINAL: The patient denies nausea, vomiting, diarrhea or abdominal pain. ORTHOPEDIC: The patient is aware of the ulcer on her foot. Denies pain. She is under the belief that it had previously healed. Other systems in a 14-point review of systems are negative. PHYSICAL EXAMINATION: VITAL SIGNS: The patient's vital signs at this time include pulse 97, respiratory rate of 21, blood pressure 129/59 and temperature 99.3. GENERAL: This is a chronically ill-appearing female patient who appears to be [facility] [address] [place] [address] CONSULTATION Name: KJAAL GRIFFITH Room #: 511-P [facility] IN ..#: [id number] Admission: 12/28/17 Attend Phys: Celestino Ferguson MD Discharge: Date of : 33 Report #: [id number] in minimal distress. HEAD: Normocephalic. NECK: Supple. LUNGS: Clear. HEART: Regular rhythm. ABDOMEN: Soft. Bowel sounds are present. EXTREMITIES: Examination of the extremities demonstrate diminished, but palpable distal pulses with good capillary refill. She has a small ulceration on the plantar aspect of her right foot. It is first on the plantar aspect of the first MTP. It is covered with some callus. It appears to have recently been ____ back. There is a small amount of eschar. It does not appear to be overtly opened, although it is unclear as to what resides underneath the eschar. CLINICAL IMPRESSION: Ulceration to the plantar aspect of the right foot probably due to pressure and friction and likely some degree of neuropathy. RECOMMENDATIONS: At this point in time, we will recommend just topical Betadine "paint" to the ulcerated area. She may need some trimming of callus periodically, although it does not appear to be required at this time. I do not think any further workup would be necessary at this point as there does not appear to be any evidence of acute inflammation or infection. We will recommend continued nutritional support for overall health as well as to maximize wound healing potential. I do appreciate being asked to see her in consultation. <ELECTRONICALLY SIGNED> By: Bryce Rangel MD 12/29/17 0829 1823 0452 Bryce Rangel MD /nt
[~2017-12-28 15:10] MED LIST changes: +KEFLEX500 M1 PO
[2017-12-28 18:30] VITALS: BP 133/49
[2017-12-28 21:00] VITALS: BP 124/73
[2017-12-29 03:54] LABS: HEMATOCRIT 33.9 % (37.0-47.0); HEMOGLOBIN 11.6 gm/dL (12.0-15.0); MCHC 34.1 g/dL (28.0-37.0); MCV 93.8 fL (80.0-100.0); RBC 3.61 mil/uL (4.20-5.00); RDW 12.1 % (10.5-14.5); WBC 9.6 thou/uL (4.0-11.0)
[2017-12-29 04:01] LABS: CALCIUM 8.9 mg/dL (8.5-10.1); CREATININE 0.6 mg/dL (0.6-1.0); POTASSIUM 3.9 mmol/L (3.5-5.1)
[2017-12-29 07:45] VITALS: BP 143/76
[2017-12-29 19:45] VITALS: BP 112/48
[2017-12-30 07:30] VITALS: BP 125/63
[2017-12-30 20:10] VITALS: BP 135/75
[2017-12-31 07:16] LABS: ABSOLUTE NEUTROPHILS 6.8 thou/uL (1.4-8.2); BASOPHILS 0.7 % (0.0-2.0); EOSINOPHILS 3.5 % (0.0-3.0); HEMATOCRIT 33.9 % (37.0-47.0); HEMOGLOBIN 11.6 gm/dL (12.0-15.0); LYMPHOCYTES 10.7 % (24.0-44.0); MCH 32.1 pg (26.0-34.0); MCHC 34.2 g/dL (28.0-37.0); MCV 93.9 fL (80.0-100.0); MONOCYTES 11.5 % (1.0-8.0); PLATELET COUNT 252 thou/uL (150-400); POLYS 73.6 % (36.0-66.0); RBC 3.61 mil/uL (4.20-5.00); RDW 12.1 % (10.5-14.5); WBC 9.2 thou/uL (4.0-11.0)
[2017-12-31 07:30] VITALS: BP 146/66
[2017-12-31 07:41] LABS: CALCIUM 9.3 mg/dL (8.5-10.1); CREATININE 0.6 mg/dL (0.6-1.0); MAGNESIUM 1.9 mg/dL (1.8-2.4); POTASSIUM 3.7 mmol/L (3.5-5.1)
[2017-12-31 15:32] VITALS: BP 146/66
[2017-12-31 19:52] VITALS: BP 152/70
[2018-01-01 10:05] VITALS: BP 128/58
[2018-01-01 20:45] VITALS: BP 124/48
[2018-01-02 07:45] VITALS: BP 140/58
[2018-01-02 19:40] VITALS: BP 124/52
[2018-01-03 08:00] VITALS: BP 158/89
[2018-01-03 19:25] VITALS: BP 126/68
[2018-01-04 07:30] VITALS: BP 142/74
[2018-01-04 19:39] VITALS: BP 140/75
[2018-01-05 06:09] LABS: ABSOLUTE NEUTROPHILS 6.2 thou/uL (1.4-8.2); BASOPHILS 0.9 % (0.0-2.0); EOSINOPHILS 5.2 % (0.0-3.0); HEMATOCRIT 32.9 % (37.0-47.0); HEMOGLOBIN 11.4 gm/dL (12.0-15.0); LYMPHOCYTES 9.6 % (24.0-44.0); MCH 32.5 pg (26.0-34.0); MCHC 34.7 g/dL (28.0-37.0); MCV 93.5 fL (80.0-100.0); MONOCYTES 10.6 % (1.0-8.0); PLATELET COUNT 309 thou/uL (150-400); POLYS 73.7 % (36.0-66.0); RBC 3.52 mil/uL (4.20-5.00); RDW 12.2 % (10.5-14.5); WBC 8.4 thou/uL (4.0-11.0)
[2018-01-05 06:23] LABS: CALCIUM 9.1 mg/dL (8.5-10.1); CREATININE 0.7 mg/dL (0.6-1.0); MAGNESIUM 1.8 mg/dL (1.8-2.4); POTASSIUM 3.8 mmol/L (3.5-5.1)
[2018-01-05 08:30] VITALS: BP 106/59
[2018-01-05 19:32] VITALS: BP 117/56
[2018-01-06 07:50] VITALS: BP 137/80
[2018-01-06] MEDS ORDERED: VOLTAREN GEL 1100 G2 TOP (10:06)
[2018-01-06] MEDS ORDERED: TYLENOL325 MG PO (10:06)
[2018-01-06] MEDS ORDERED: COLACE100 MG PO (10:06)
[2018-01-06] MEDS ORDERED: LIPITOR40 MG PO (10:06)
[2018-01-06] MEDS ORDERED: ELIQUIS5 MG PO (10:06)
[2018-01-06 15:42] VITALS: BP 137/80
[2018-01-06 21:12] VITALS: BP 130/58
== END 2018-01-07 17:03 | disposition home health service (06) | DRG 948 ==
PROVIDERS: Nurse Practitioner; Nurse Practitioner Family
DX: R53.81 Other malaise (principal); E87.1 Hypo-osmolality and hyponatremia; E46 Unspecified protein-calorie malnutrition; G45.9 Transient cerebral ischemic attack, unspecified; I25.10 Atherosclerotic heart disease of native coronary artery without angina pectoris; M35.00 Sjogren syndrome, unspecified; L97.519 Non-pressure chronic ulcer of other part of right foot with unspecified severity; R47.81 Slurred speech; I48.2 Chronic atrial fibrillation; Z96.612 Presence of left artificial shoulder joint; R26.9 Unspecified abnormalities of gait and mobility; E78.5 Hyperlipidemia, unspecified; I10 Essential (primary) hypertension; E55.9 Vitamin D deficiency, unspecified; F41.9 Anxiety disorder, unspecified; G62.9 Polyneuropathy, unspecified; Z60.2 Problems related to living alone; F32.9 Major depressive disorder, single episode, unspecified; R41.9 Unspecified symptoms and signs involving cognitive functions and awareness; M17.11 Unilateral primary osteoarthritis, right knee; K21.9 Gastro-esophageal reflux disease without esophagitis; R21 Rash and other nonspecific skin eruption; R53.1 Weakness; Z90.49 Acquired absence of other specified parts of digestive tract; Z88.2 Allergy status to sulfonamides; Z88.6 Allergy status to analgesic agent; I25.2 Old myocardial infarction; Z79.01 Long term (current) use of anticoagulants; Z89.422 Acquired absence of other left toe(s); Z79.899 Other long term (current) drug therapy; Z79.82 Long term (current) use of aspirin; Z86.74 Personal history of sudden cardiac arrest; Z68.26 Body mass index [BMI] 26.0-26.9, adult; R29.810 Facial weakness
CPT/HCPCS: 10112

== ENCOUNTER 2018-09-19 15:06 | Inpatient (IN) | payer OTHER ==
[~2018-09-19] VITALS: Ht 160 cm; Wt 72.3 kg
--- NOTE | ~2018-09-19 | HC ---
[facility] [place] [address] CONSULTATION Name: KAJAL GRIFFITH Room #: 224-P [facility] IN M.R.#: [id number] Admission: 09/19/18 ������������������ Attend Phys: Marcell Norman MD Discharge: 09/21/18 ������������������ Date of : 33 Report #: [id number] THIS REPORT FOR: //name// CC: Bryce Norman DATE OF SERVICE: 09/20/2018 CHIEF COMPLAINT: Ulceration to the right foot and surgical wound to the left foot. HISTORY OF PRESENT ILLNESS: This is an 83-year-old female patient who was admitted to the hospital with a history of Sjogren syndrome and congestive heart failure. She woke up with significant dizziness and a spinning sensation. She apparently passed out and was admitted for evaluation and treatment. Along the way, she was noted to have surgical ilene in her left foot from what appears to be an amputation of her left second toe as well as a large callus on her right foot. She denies any pain associated with these. ALLERGIES: CODEINE AND SULFA. PAST MEDICAL HISTORY: Positive for atrial fibrillation, atrial septal defect, congestive heart failure, dizziness, dyspnea, nausea, vomiting, Sjogren syndrome, TIA, weakness, recurring ulcers to her feet and bunions bilaterally. MEDICATIONS: Include vitamin C, Centrum Silver, Cozaar, aspirin, potassium, atorvastatin. SOCIAL HISTORY: Negative for alcohol or tobacco use. FAMILY HISTORY: Noncontributory. REVIEW OF SYSTEMS: CONSTITUTIONAL: The patient denies fever, chills, weight loss. NEUROLOGICAL: The patient denies focal weakness, numbness, tingling. EYES: The patient denies visual changes, redness or drainage. ENT: The patient denies earache, nasal drainage or sore throat. CARDIOVASCULAR: The patient denies chest pain, palpitations or diaphoresis. PULMONARY: The patient denies cough or shortness of breath. GASTROINTESTINAL: The patient denies nausea, vomiting, diarrhea or abdominal pain. ORTHOPEDIC: The patient does note the ilene in her left foot and ulcer on her right foot. Other systems in a 14-point review of systems are negative. [facility] [address] [place] [address] CONSULTATION Name: KAJAL GRIFFITH Room #: 224-P [facility] IN [facility].#: [id number] Admission: 09/19/18 ������������������ Attend Phys: Marcell Norman MD Discharge: 09/21/18 ������������������ Date of : 33 Report #: [id number] PHYSICAL EXAMINATION: VITAL SIGNS: At this time include temperature 97.2, pulse 76, respiratory rate of 17, blood pressure 120/61. GENERAL: This is a chronically ill appearing female patient who appears to be in minimal distress. HEENT: Head normocephalic. Nose and throat are clear. NECK: Supple. LUNGS: Clear. HEART: Irregular without murmurs. ABDOMEN: Soft. Bowel sounds present. EXTREMITIES: Examination of lower extremities demonstrates what appeared to be palpable distal pulses with good capillary refill. She has bunion deformities both feet. She has what appears to be ilene in the dorsal aspect of the left foot what would appear to have been a second toe amputation site. The incision line is long, resolved. Ilene are removed. There is no separation or evidence of infection. Right foot demonstrates a large callus on the plantar aspect of the right first MTP with a small amount of odor. There is a possibility of an ulcer beneath it, it is difficult to tell. CLINICAL IMPRESSION: 1. Surgical incision to the left foot following amputation of the left second toe several months ago. 2. Congestive heart failure. 3. Sjogren syndrome. 4. Peripheral neuropathy by clinical exam. 5. Large callus and possible ulceration, right first metatarsophalangeal. RECOMMENDATIONS: At this point in time, the ilene were removed from the left foot. This can be left open to air. We will plan to trim the callus on her right foot. We will recommend topical dressings appropriate at the time of the callus removal. We will recommend continuing current medications. Will need aggressive ongoing nutritional support to maximize wound healing. I appreciate being asked to see her in consultation. ��������������������������������������������� ���������������������������������������� By: ��������������������������������������������� 1929 0023 Bryce Rangel MD /tim
--- NOTE | ~2018-09-19 | HC ---
[facility] [place] [address] CONSULTATION Name: KAJAL GRIFFITH Room #: 224-P [facility] IN M.R.#: [id number] Admission: 09/19/18 ������������������ Attend Phys: Marcell Norman MD Discharge: 09/21/18 ������������������ Date of : 33 Report #: [id number] THIS REPORT FOR: //name// CC: Bryce Norman DATE OF SERVICE: 09/21/2018 HISTORY OF PRESENT ILLNESS: The patient is an 83-year-old white female who was admitted with dizziness, multiple episodes of nausea and vomiting. MRI showed bilateral inferior subacute cerebellar strokes. She is noted to have significant truncal ataxia and has had a significant decline from her premorbid functional status. We are seeing her in rehabilitation medicine consultation. PAST MEDICAL HISTORY: Atrial fibrillation, atrial septal defect, congestive heart failure wound of the right foot. She has had prior right toe amputations, Sjogren syndrome. ALLERGIES: CODEINE, SULFAMETHOXAZOLE, TRIMETHOPRIM, SULFA. MEDICATIONS: Please see the full medication listing. This includes vitamins, herbals, and supplements. PAST MEDICAL HISTORY: Includes chronic atrial fibrillation, atrial septal defect repair, atrial fibrillation with cardioversion in 2009, [place] 1980 and 2009, laparoscopic cholecystectomy, neuropathy, left shoulder replacement, coronary artery disease, hypertension, hard of hearing, right shoulder repair. FAMILY HISTORY: Noncontributory. HABITS: No history of tobacco or alcohol abuse. No recreational drug abuse. SOCIAL HISTORY: Lives in a house alone, 7 steps in and raised ranch. Son and daughter live close. She had been using a cane with her foot issues. REVIEW OF SYSTEMS: No complaints of chest pain, shortness of breath, abdominal discomfort. She had the severe nausea, vomiting, dizziness, which she thinks is overall improved. Has concerns regarding her balance and coordination. No chest pain, shortness of breath, or abdominal discomfort. No bowel or bladder changes were verbalized. She has decreased distal sensation noted with her neuropathy. No current focal extremity pain complaints. PHYSICAL EXAMINATION: GENERAL: Pleasant 83-year-old white female, small statured, thin, in no obvious distress. She is hard of hearing. VITAL SIGNS: Temperature 97.2, pulse 76, respirations 17, blood pressure [facility] [address] [place] [address] CONSULTATION Name: KAJAL GRIFFITH Room #: 224-P [facility] IN [facility].#: [id number] Admission: 09/19/18 ������������������ Attend Phys: Marcell Norman MD Discharge: 09/21/18 ������������������ Date of : 33 Report #: [id number] 128/61. NEUROLOGIC: She is alert, follows basic commands without difficulty. Facies appeared symmetric. EOMs she does have some lateral nystagmus. Functional range of motion of both upper and lower extremities, I would grade her strength at a 4-/5. DTRs are trace to 1. She did reasonably well with [id number] bilaterally. She does have the prior amputation of her toes as noted. I did not examine her feet at this time. Note that wound care is involved. Functionally, she is mod assist with sit to stand. Gait was mod assist to 5 feet with a front-wheeled walker with significant truncal ataxia. ASSESSMENT: An 83-year-old white female with the following problem list: 1. 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 3. Functional mobility and ADL deficits. We will also need to check out cognitive concerns. 4. Dizziness/nausea/vomiting appears improved. 5. Chronic bilateral foot wounds. Wound care is involved. 6. Cognitive impairment, possible toxic metabolic encephalopathy. 7. Chronic atrial fibrillation. 8. Chronic diastolic heart failure. 9. Hypertension. 10. Coronary artery disease, status post myocardial infarction. 11. Sjogren syndrome. PLAN: The patient is a good candidate for an acute [address] [place] [address] inpatient rehabilitation stay. Can plan on transfer to the acute [address] [place] [address] rehab [facility] when medically cleared. The patient is amenable. ��������������������������������������������� ���������������������������������������� By: ��������������������������������������������� 1142 1604 Celestino Ferguson MD /nt
--- NOTE | ~2018-09-19 | HC ---
[facility] [place] [address] CONSULTATION Name: KAJAL GRIFFITH Room #: 224-P ADM IN M.R.#: [id number] Admission: 09/19/18 ������������������ Attend Phys: Marcell Norman MD Discharge: ������������������ Date of : 33 Report #: [id number] THIS REPORT FOR: //name// CC: Bryce Norman DATE OF SERVICE: 09/20/2018 HISTORY OF PRESENT ILLNESS: This is an 83-year-old female patient who was evaluated by me for dizziness. The history is not completely clear. Sometime she tells me she woke up with dizziness, but on other occasions, she tells me that it happened around 9:00. After talking to her for long time, it would appear that the patient probably was dizzy when she woke up yesterday morning and then about 9:00 yesterday morning, it became worst. She also had nausea and vomiting with it. She did not know any aggravating or relieving factors for that. Dizziness was severe. It is somewhat better today. Her nausea is also better. It had come spontaneously without any trauma. REVIEW OF SYSTEMS: Indicate that patient has a history of atrial fibrillation. She is on anticoagulation. She says that she takes anticoagulation faithfully. She has a history of coronary artery disease and cardiac arrest in the past. She had shoulder surgery in the past. She has a history of Sjogren disease. She does not go to a refinish technician. 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 She has a history of hypertension and in the past. She had a prior injury to the foot. A 14-point review of systems indicates she has some vision problem, but she does not know what the cause for that is. 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 She denies any tinnitus, chest pain, respiratory difficulty, GI, musculoskeletal, constitutional, dermatological, hematological, psychiatric, throat, allergic symptom associated with present symptomatology. PAST MEDICAL HISTORY: Positive for coronary artery disease. FAMILY HISTORY: Negative for early age stroke. SOCIAL HISTORY: She says she lives by herself and able to take care of her activities of daily living by herself. She does not smoke or use any alcohol. PHYSICAL EXAMINATION: Indicate the patient is alert, responsive, oriented, but indicate that it is September, the or . She knows what hospital she is in. She knows who the president is. Her speech looks intact. Cranial nerve examination looks like her vision is poor, but otherwise appears unremarkable. Neuromuscular examinations indicate that her position sense appeared to be diminished. Reflexes are diminished. Tone looks symmetrical. There is no cerebellar sign. I could not look at the patient[place] [id number] CONSULTATION Name: KAJAL GRIFFITH Room #: 224-P [facility] IN M.R.#: [id number] Admission: 09/19/18 ������������������ Attend Phys: Marcell Norman MD Discharge: ������������������ Date of : 33 Report #: [id number] well-developed individual. She does not have any dysmorphic features of eyes, ears or face. Her vision and hearing is as described above. She has no thyroid mass. Pulses are difficult to feel. She has no edema, cyanosis or jaundice. Cardiac examination, she has a history of atrial fibrillation. No respiratory difficulty or rhonchi on either side. Blood pressure is 128/66, respiration is 18, pulse is 82, and temperature is 97.9. LABORATORY DATA: White count is 9.1. Sodium is 134. Her MRI was reviewed. MRI demonstrates bilateral cerebellar strokes. IMPRESSION: 1. Bilateral cerebellar strokes. 2. History of atrial fibrillation with the patient being fully anticoagulated. 3. History of Sjogren disease that needs further workup to make sure the strokes are not because of vasculitis. 4. Because of bilateral cerebellar stroke, basilar artery pathology needs to be excluded. RECOMMENDATIONS: 1. MRA of the head to look for basilar artery. 2. Echocardiogram. 3. MRA of the carotid. 4. She may need SHIRIN depending upon the above. 5. Check for any evidence for vasculitis since the stroke occur in spite of being on full anticoagulation, although that can happen. She may needs reevaluation by her research and development engineer. All of it was discussed with the patient and she is agreeable with that. Thank you very much for this referral. ��������������������������������������������� ���������������������������������������� By: ��������������������������������������������� [id number] Niko Harmon MD /nt
[~2018-09-19 15:06] MED LIST changes: +TYLENOL325 MG PO; +VOLTAREN GEL 1100 G2 TOP
[2018-09-19 15:08] VITALS: BP 126/78
[2018-09-19 15:32] LABS: BASOPHILS 0.7 % (0.0-2.0); HEMATOCRIT 35.2 % (37.0-47.0); HEMOGLOBIN 12.1 gm/dL (12.0-15.0); MCH 32.1 pg (26.0-34.0); MCHC 34.4 g/dL (28.0-37.0); MCV 93.3 fL (80.0-100.0); MONOCYTES 11.3 % (1.0-8.0); PLATELET COUNT 180 thou/uL (150-400); RBC 3.78 mil/uL (4.20-5.00); RDW 12.7 % (10.5-14.5); WBC 9.1 thou/uL (4.0-11.0)
[2018-09-19 15:37] LABS: ANION GAP 11 mmol/L (7-16); BUN 20 mg/dL (7-18); CALCIUM 9.4 mg/dL (8.5-10.1); CHLORIDE 97 mmol/L (98-107); CO2 26 mmol/L (21-32); CREATININE 0.8 mg/dL (0.6-1.0); GLUCOSE 180 mg/dL (74-106); POTASSIUM 3.3 mmol/L (3.5-5.1); SODIUM 134 mmol/L (136-145)
[2018-09-19 15:46] LABS: ALBUMIN 3.3 g/dL (3.4-5.0); LIPASE 325 U/L (73-393); SGOT 24 U/L (15-37); SGPT 21 U/L (30-65); TOTAL BILIRUBIN 0.4 mg/dL (<0.1-1.0); TOTAL PROTEIN 8.3 g/dL (6.4-8.2); TROPONIN-I <0.06 ng/mL (<0.06)
[2018-09-19 17:27] LABS: URINE BILIRUBIN NEGATIVE (Negative); URINE BLOOD NEGATIVE (Negative); URINE CLARITY CLEAR; URINE COLOR YELLOW; URINE GLUCOSE-RANDOM* NEGATIVE (Negative); URINE KETONES NEGATIVE (Negative); URINE LEUKOCYTES-REFLEX NEGATIVE (Negative); URINE NITRITE-REFLEX NEGATIVE (Negative); URINE PROTEIN (DIPSTICK) NEGATIVE (Negative); URINE SPECIFIC GRAVITY 1.015 (1.005-1.035); URINE UROBILINOGEN 0.2 E.U./dl (0.2-1.0)
[2018-09-19 20:38] VITALS: BP 165/80
[2018-09-19 21:01] VITALS: BP 171/86
--- NOTE | 2018-09-19 23:02 | NUR ---
PT WAS ADMITTED TO THE UNIT AT APPROX 2100 FROM THE ER IN A STABLE CONDITION.ADMISSION HX,EDUCATION AND ASSESSMENT COMPLETED.PT HAS A SCAB UNDER HER R GREAT TOE AND NINE LORENA ON HER SECOND AMPUTATED TOE.PT STILL WITH DIZZINESS.UP WITH ASSIST X1 TO BSC.GREENISH SMALL EMESIS X1 NOTED SINCE ADMIT.IVF INFUSING ORDERED.PT RESTING ON HER BED AT THIS TIME.FALL PRECAUTIONS IN PLACE,CALL LIGHT WITHIN REACH.
[2018-09-20 04:33] VITALS: BP 153/77
[2018-09-20 06:05] VITALS: BP 158/100; BP 165/79
[2018-09-20 06:19] LABS: CALCIUM 9.3 mg/dL (8.5-10.1); CREATININE 0.6 mg/dL (0.6-1.0)
--- NOTE | 2018-09-20 09:00 | EKG ---
[address] [place] [address] ELECTROCARDIOGRAM REPORT Name: KAJAL GRIFFITH Room #: 427-P ADM IN M.R.#: [id number] ������������������ Admission: 09/19/18 ������������������ Attend Phys: Marcell Norman MD Discharge: ������������������ Date of : 33 Report #: [id number] ����������������������������������������������������������������� [id number] THIS REPORT FOR: //name// [facility] ED Test Date: 2018-09-19 Test Time: 15:43:06 Pat Name: KAJAL GRIFFITH Department: Room: [facility] Gender: F Sound Person: JANICE : 1935 Requested By: Christina Shelby Order Number: [id number] MD: Duy Sandoval Measurements Intervals [place] Rate: 79 P: VT: QRS: -54 QRSD: 130 T: 100 QT: 435 QTc: 499 Interpretive Statements Atrial fibrillation Incomplete left bundle branch block Leftward axis Compared to ECG 01/07/2018 10:18:07 Incomplete left bundle branch block is now present Electronically Signed On 09-20-2018 9:00:01 STORE OPERATIONS ASSOCIATE by Duy Sandoval [email or web address] ��������������������������������������������� <ELECTRONICALLY SIGNED> ���������������������������������������� By: Duy Sandoval MD, [facility] ��������������������������������������������� 09/20/18 0900 [id number] Duy Sandoval MD, [facility] /EPI
--- NOTE | 2018-09-20 09:35 | NUR ---
PATIENT LEFT AT THIS TIME TO HAVE MRI. DR LAU HERE TO SEE PATIENT. HE WILL REVIEW HISTORY. HE IS AWARE OF ORTHO B/P.
--- NOTE | 2018-09-20 10:31 | NUR ---
REPORT GIVEN TO SENIOR SUITES NURSE PATIENT TO MOVE TO ROOM 224.
--- NOTE | 2018-09-20 10:45 | NUR ---
ASSESSMENT-PT LIVES IN A RAISED RANCH HOME ALONE. SHE MOSTLY WALKS ON HER OWN BUT DOES HAVE A CANE AND WALKER IF NEEDED. PT SAYS SHE DOES HER OWN COOKING, CLEANING AND LAUNDRY. PT HAS TO GO DOWN STAIRS TO GET TO THE LAUNDRY. PT DOES NOT DRIVE. MARIAM GODWIN USUALLY PROVIDES TRANSPORTATION FOR HER AND DOES HER GROCERY SHOPPING. PT'S DTR LIVES 3-4 BLOCKS AWAY AND SON AND DIL LIVE 2 BLOCKS AWAY. PT HAS HAD CHCS IN THE PAST. WILL ASK THERAPIES TO SEE TO ASSESS FOR HOME SAFETY. FOLLOWING TO ASSIST WITH DC PLANNING.
[2018-09-20 11:15] VITALS: BP 128/66
--- NOTE | 2018-09-20 12:17 | NUR ---
SPOKE WITH Vanita EXPLAINED THAT PATIENT MOVED TO SENIOR SUITES ROOM 224
--- NOTE | 2018-09-20 12:51 | NUR ---
PATIENT TRANSFERRED TO SICU [address] [place] [address] AT 1100, PATIENT TRASNFERRED X1 ASSIST D/T DIZZINESS FROM WHEELCHAIR TO BED, DENIES PAIN AND DISCOMFORT AT THIS TIME, FLUIDS INFUSING VIA LAC, PATIENT ORIENTED TO ROOM AND STAFF, NOW IN BED RESTING, PERSONAL BELONGINGS AND CALL LIGHT IN REACH, WILL CONTINUE TO MONITOR
--- NOTE | 2018-09-20 16:28 | 2DMMODE ---
[facility] [place] [address] 2 D/M-MODE ECHOCARDIOGRAM Name: GLADISKAJAL F Room #: 224-P [facility] IN .R.#: [id number] ������������� Admission: 09/19/18 ������������� Attend Phys: Marcell Norman MD Discharge: ��� ������������� ��� Date of : 31 Date of Service: 09/20/18 1628 �� Report #: [id number] �������� ��������������������������������������������[id number] THIS REPORT FOR: //name// APPROVED REPORT Study performed: 09/20/2018 15:06:48 EXAM: Comprehensive 2D, Doppler, and color-flow Echocardiogram Patient Location: Bedside Room #: 224 Status: routine BSA: 1.75 HR: 64 bpm BP: 128/66 mmHg Rhythm: Atrial Fibrillation Other Information Study Quality: Good Indications CVA. Hx: TN, cardiac arrest, Afib, ASD closure device HTN. Echo Enhancing Agent Indication: Rule out Shunt Agent(s) / Amount(s) Used: Agitated Saline 6 cc 2D Dimensions RVDd: 37.47 mm IVSd: 11.32 (7-11mm) LVOT Diam: 20.23 (18-24mm) LVDd: 47.34 mm PWd: 11.41 (7-11mm) Ascending Ao: 35.76 (22-36mm) LVDs: 33.39 (25-40mm) Aortic Root: 33.28 mm Volumes Left Atrial Volume (Systole) Single Plane 4CH: 104.41 mL Single Plane 2CH: 107.10 mL LA ESV Index: 65.00 mL/m2 Aortic Valve AoV Peak Jn.: 1.22 m/s AO Peak Gr.: 6.98 mmHg LVOT Max P.68 mmHg LVOT Max V: 0.65 m/s HUDSON Vmax: 1.71 cm2 [facility] [place] [place] [address] 2 D/M-MODE ECHOCARDIOGRAM Name: KAJAL GRIFFITH Room #: 224-P [facility] IN ..#: [id number] ������������� Admission: 09/19/18 ������������� Attend Phys: Marcell Norman MD Discharge: ��� ������������� ��� Date of : 31 Date of Service: 09/20/18 1628 �� Report #: [id number] �������� ��������������������������������������������[id number] Mitral Valve MV Decel. Time: 154.87 ms MV E Max Jn.: 1.13 m/s Pulmonary Valve PV Peak Jn.: 0.55 m/s PV Peak Gr.: 1.22 mmHg Tricuspid Valve TR Peak Jn.: 2.50 m/s RAP Estimate: 10.00 mmHg TR Peak Gr.: 26.00 mmHg PA Pressure: 36.00 mmHg Left Ventricle The left ventricle is normal size. There is normal LV segmental wall motion. There is normal left ventricular wall thickness. Left ventricular systolic function is normal. LVEF is 50-55%. This study is not technically sufficient to allow evaluation of the LV diastolic function. Right Ventricle The right ventricle is normal size. The right ventricular systolic function is normal. Atria Left atrium is severely dilated. Percutaneous closure device across the atrial septum. No shunting noted with contrast bubble injection. Right atrium is severely dilated. Aortic Valve The aortic valve is sclerotic. No aortic regurgitation is present. There is no aortic valvular stenosis. Mitral Valve Mitral valve leaflets are mildly thickened and calcified. Mild mitral annular calcification. Moderate mitral regurgitation. No evidence of mitral valve stenosis. Tricuspid Valve The tricuspid valve is normal in structure. Moderate tricuspid regurgitation. Estimated PAP is 35-40mmHg. Pulmonic Valve The pulmonary valve is normal in structure. Trace pulmonic regurgitation. Great Vessels [facility] [address] [place] [address] 2 D/M-MODE ECHOCARDIOGRAM Name: KAJAL GRIFFITH Room #: 224-P [facility] IN ..#: [id number] ������������� Admission: 09/19/18 ������������� Attend Phys: Marcell Norman MD Discharge: ��� ������������� ��� Date of : 31 Date of Service: 09/20/18 1628 �� Report #: [id number] �������� ��������������������������������������������[id number] The aortic root is normal in size. The ascending aorta is normal in size. IVC is normal in size and collapses <50% with inspiration. Pericardium There is no pericardial effusion. <Conclusion> Left ventricular systolic function is normal. There is normal LV segmental wall motion. LVEF 50-55%. Both atria are severely dilated. Percutaneous closure device across the atrial septum. No shunting noted with contrast bubble injection. The aortic valve is sclerotic. No aortic regurgitation or stenosis. Mitral valve leaflets are mildly thickened and calcified. Mild mitral annular calcification. Moderate mitral regurgitation. Moderate tricuspid regurgitation. Estimated pulmonary artery pressure of 35-40mmHg. There is no pericardial effusion. ��������������������������������������������� <ELECTRONICALLY SIGNED> ���������������������������������������� By: Duy Sandoval MD, [facility] ��������������������������������������������� 09/20/18 1628 1628 1628 Duy Sandoval MD, FAC /INF
[2018-09-20 18:30] VITALS: BP 128/61
[2018-09-20 20:35] VITALS: BP 128/61
--- NOTE | 2018-09-21 03:47 | NUR ---
Patient remains A&Ox4; Swallows meds whole w/o difficulty. Remains cont. B&B; ambulates w/ asst x1; gait unsteady. Last BM 09/19/18, per patient. LAC saline lock noted/intact; infusing NS at 80ml/hr w/o difficulty. Black are noted to bottom of R great toe. Ortho BPs WNL. Patient denies pain or discomfort, at this time. No s/s of acute distress noted. Patient asleep in bed, at this time, w/ call light/desired belongings within reach and bed alarm intact. PO fluids encouraged. Will continue to monitor.
[2018-09-21 08:25] VITALS: BP 149/76
--- NOTE | 2018-09-21 08:49 | NUR ---
WOUND CONSULT: PT. WAS SEEN ON 09/20/[address] WYATT AND MYSELF. PT. IS WELL KNOWN TO THE WOUND CARE TEAM. PT. HAS LORENA STILL IN PLACE FROM A TOE AMPUTION TO HER LEFT FOOT IN JULY OF 2018. THESE WERE REMOVED THIS VISIT. 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 RECOMMENDATIONS: NO WOUND CARE DRESSING NEEDED AT THIS TIME. PT. AND STAFF NURSE WERE INSTRUCTED ON PLAN OF CARE.
--- NOTE | 2018-09-21 10:42 | NUR ---
Case reviewed with the care team. Pt with new infarct. 5N acute rehab eval in progress. Therapy working with the pt today. Will follow.
[2018-09-21] MEDS ORDERED: ANTIVERT25 MG PO (12:31)
--- NOTE | 2018-09-21 13:22 | NUR ---
I have reviewed the documentation by HORTENCIA FRAZIER from 09/21/18 to 09/21/18 and I concur with it. ANNE RUGGIERO A
--- NOTE | 2018-09-21 14:15 | NUR ---
ASSUMED PATIENT AND CARES AT 0715, A&OX4, VOICED CONCERNS ABOUT BACK PAIN AND WANTING TO FIGURE IT OUT SO IT CAN GET RESOLVED, LAC INTACT AND PATENT WITH NS 75ML/HR INFUSING, NEW BAG HUNG PRIOR TO SHIFT STARTING, MAKES NEEDS KNOWN, REMAINS STANDBY ASSIST, PERSONAL BELONGINGS AND CALL LIGHT IN REACH, WILL CONINUE TO MONITOR
[2018-09-21 15:12] VITALS: BP 149/77
[2018-09-21 15:13] VITALS: BP 151/63; BP 151/79
--- NOTE | 2018-09-21 15:14 | NUR ---
ORTHO BP COMPLETE AT THIS TIME, SITTING RIGHT ARM 149/77 90, LYING RIGHT ARM 151/63 84, STANDING RIGHT ARM 151/79 88
--- NOTE | 2018-09-21 15:38 | NUR ---
PATIENT DISCHARGED FROM SICU 224 TO 5N REHAB 506, PATIENT STABLE UPON DISCHARGE, LAC INTACT, PERSONAL BELONGINGS PACKED AND TRANSFERRING WITH PATIENT, REPORT GIVEN TO NURSE, TRANSPORT CALLED
== END 2018-09-21 15:52 | DRG 64 ==
LOC: ER 15:06 → EROBS 19:38 → 4E 19:38 → SICU 09-20 11:14 → ENTRNSPT 09-21 15:37 → EDTRNSPTSTS 09-21 15:38 → SICU 09-21 15:52
PROVIDERS: Nurse Practitioner Family; Physician Assistant; ADMIT Internal Medicine
DX: I63.9 Cerebral infarction, unspecified (principal); E43 Unspecified severe protein-calorie malnutrition; I50.32 Chronic diastolic (congestive) heart failure; L97.419 Non-pressure chronic ulcer of right heel and midfoot with unspecified severity; I48.2 Chronic atrial fibrillation; M35.00 Sjogren syndrome, unspecified; I25.10 Atherosclerotic heart disease of native coronary artery without angina pectoris; F03.90 Unspecified dementia, unspecified severity, without behavioral disturbance, psychotic disturbance, mood disturbance, and anxiety; Z96.611 Presence of right artificial shoulder joint; Z96.612 Presence of left artificial shoulder joint; S91.302A Unspecified open wound, left foot, initial encounter; I11.0 Hypertensive heart disease with heart failure; G62.9 Polyneuropathy, unspecified; M62.84 Sarcopenia; K59.00 Constipation, unspecified; S91.301A Unspecified open wound, right foot, initial encounter; X58.XXXA Exposure to other specified factors, initial encounter; Y93.89 Activity, other specified; Y92.89 Other specified places as the place of occurrence of the external cause; Y99.8 Other external cause status; Z68.28 Body mass index [BMI] 28.0-28.9, adult; Z88.5 Allergy status to narcotic agent; Z88.2 Allergy status to sulfonamides; Z88.8 Allergy status to other drugs, medicaments and biological substances; Z90.710 Acquired absence of both cervix and uterus; Z89.422 Acquired absence of other left toe(s); Z90.49 Acquired absence of other specified parts of digestive tract; Z79.899 Other long term (current) drug therapy; Z28.21 Immunization not carried out because of patient refusal
CPT/HCPCS: 10084; 15002

== ENCOUNTER 2018-09-21 13:40 | Inpatient (IN) | payer OTHER ==
[~2018-09-21] VITALS: Ht 160 cm; Wt 69.4 kg
--- NOTE | ~2018-09-21 | H ---
[facility] [place] [address] HISTORY AND PHYSICAL Name: KAJAL GRIFFITH Room #: 506-1 ADM IN M.R.#: [id number] Admission: 09/21/18 ������������������ Attend Phys: Celestino Ferguson MD Discharge: ������������������ Date of : 33 Report #: [id number] THIS REPORT FOR: //name// CC: Celestino Ferguson FAM unknown Bryce Jacob DATE OF SERVICE: 09/21/2018 POSTADMISSION PHYSICIAN EVALUATION HISTORY OF PRESENT ILLNESS: The patient is an 83-year-old white female originally admitted to [facility] on 09/21/2018 with dizziness, multiple episodes of nausea and vomiting. MRI showed bilateral inferior subacute cerebellar strokes. 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 Neurology has been involved. She was felt to be ready for admission for acute in-hospital inpatient rehabilitation. PAST MEDICAL HISTORY, ALLERGIES, FAMILY HISTORY, HABITS, AND SOCIAL HISTORY: Please see my prior consult note dictation as well as the dictated history and physical from nurse practitioner, Lacey Connell. MEDICATIONS: Please see the full medication listing. This includes vitamins, herbals, and supplements. REVIEW OF SYSTEMS: No current complaints of chest pain, shortness of breath, abdominal discomfort were noted. Again, please see the full dictation. PHYSICAL EXAMINATION: GENERAL: An 83-year-old white female in no obvious distress. VITAL SIGNS: Temperature 98.3, pulse 84, respirations 12, blood pressure 154/60. The patient is alert. HEENT: Appeared to be benign. NEUROLOGIC: Cranial nerves are grossly intact. Facies are symmetric. EXTREMITIES: She does have some lateral nystagmus with testing EOMs. CHEST: Sounded clear to auscultation. CARDIOVASCULAR: Sounded irregular. ABDOMEN: Bowel sounds positive, nontender. GENITOURINARY AND RECTAL: Deferred. EXTREMITIES: Functional range of motion of both upper extremities, strength 4-/5. DTRs are trace to 1. Lower extremities, functional range of motion, strength grade 4-/5. 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 She has been mod assist with sit to stand and has evidence of truncal ataxia with attempted ambulation. ASSESSMENT: [address] [address] HISTORY AND PHYSICAL Name: KAJAL GRIFFITH Room #: 506-1 ADM IN .R.#: [id number] Admission: 09/21/18 ������������������ Attend Phys: Celestino Ferguson MD Discharge: ������������������ Date of : 33 Report #: [id number] 1. 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 3. Functional mobility and ADL deficits. We will need to check out cognitive issues as well. 4. Dizziness, nausea, vomiting appears improved. 5. Bilateral chronic foot wounds with wound care involved. 6. Cognitive impairment with possible toxic metabolic encephalopathy. 7. Chronic atrial fibrillation. 8. Chronic diastolic heart failure. 9. Hypertension. 10. Coronary artery disease, status post [place]. 11. Sjogren syndrome. PLAN: From a postadmission physician evaluation perspective, there are no relevant changes since the preadmission screening. Please see the above review of prior and current medical and functional conditions and comorbidities. Please see my consult note dictation and the full history and physical dictation. As far as previous and current functional status, please see the above. As far as risk of complications, the patient has the above noted comorbidities and has decreased functional status. Initial plan of care involves the interdisciplinary acute inpatient rehabilitation program with the goal of maximizing the patient's functional independence, so she can hopefully return back to her prior living situation. Measurable functional goals would be for the patient to become modified independent with transfers, mobility and ADLs as well as cognitive communication issues that she can return back to the home setting. Prognosis is reasonably good with estimated length of stay probably at least 10 days to 2 weeks and likely longer if warranted. Potential barriers would include the patient's multiple medical comorbidities and decreased functional status. ��������������������������������������������� ���������������������������������������� By: ��������������������������������������������� [id number] [id number] Celestino Ferguson MD /nt
--- NOTE | ~2018-09-21 | PLAN ---
[facility] [place] [address] REHAB UNIT PLAN OF CARE Name: KAJAL GRIFFITH Room #: 506-1 ADM IN M.R.#: [id number] Admission: 09/21/18 ������������������ Attend Phys: Celestino Ferguson MD Discharge: ������������������ Date of : 33 Report #: [id number] THIS REPORT FOR: //name// CC: Celestino Ferguson FAM unknown Bryce Jacob DATE OF SERVICE: 09/23/2018 PROGRESS NOTE/OVERALL PLAN OF CARE SUBJECTIVE: The patient was seen back today in followup. She is in no distress. Last recorded temperature 36.8, pulse 95, respirations 14, blood pressure 152/93. The patient is improving as far as her balance, utilizing the walker. She is involved in therapies with transfer standby assistance. She is ambulating min assist 200 feet with the walker. She transfers bed to chair with min assist for standing. She does have some initial unsteadiness. She is min assist to try to go up and down 12 steps. In occupational therapy, she is min assist for upper body dressing and mod assist for lower body dressing. In speech therapy, she does have mild expressive deficits, [id number] cognitive deficits, and moderate memory deficits. ASSESSMENT: 1. Bilateral cerebellar strokes, inferior, subacute. 2. Truncal ataxia. 3. Functional mobility, activities of daily living and cognitive communication deficits. 4. Bilateral chronic foot wounds with wound care involved. 5. Cognitive impairment with possible toxic metabolic encephalopathy. 6. Chronic atrial fibrillation. 7. Chronic diastolic heart failure. 8. Hypertension. 9. Coronary artery disease, status post myocardial infarction. 10. Sjogren's syndrome. Rheumatology has been consulted as well with Neurology involved. PLAN: The overall plan of care is based on the preadmission screen, post-admission physician evaluation, and information garnered from therapy assessments. 1. Estimated length of stay is probably 10 days to 2 weeks pending progress. 2. Medical prognosis is reasonably good. 3. Anticipated interventions include the interdisciplinary acute inpatient rehabilitation program with PT and OT and speech, rehabilitation nursing assisting regarding medication management, skin care prophylaxis, bowel and bladder issues, and nursing education. We will have the interdisciplinary acute rehab team involved. [facility] [address] [place] [address] REHAB UNIT PLAN OF CARE Name: KAJAL GRIFFITH Room #: 506-1 ADM IN [facility].#: [id number] Admission: 09/21/18 ������������������ Attend Phys: Celestino Ferguson MD Discharge: ������������������ Date of : 33 Report #: [id number] 4. Discharge destination would be back to the home setting where she lives alone. She does have 7 steps to enter. She does have a daughter and a son who live nearby. 5. Expected therapy by discipline includes PT, OT, and speech 1 hour per day each 5 days a week throughout the duration of the acute inpatient rehabilitation stay. ��������������������������������������������� ���������������������������������������� By: ��������������������������������������������� 0943 [id number] Celestino Ferguson MD /nt
--- NOTE | ~2018-09-21 | H ---
[facility] [place] [address] HISTORY AND PHYSICAL Name: KAJAL GRIFFITH Room #: 506-1 ADM IN M.R.#: [id number] Admission: 09/21/18 ������������������ Attend Phys: Celestino Ferguson MD Discharge: ������������������ Date of : 33 Report #: [id number] THIS REPORT FOR: //name// CC: Celestino Ferguson FAM unknown Bryce Jacob DATE OF SERVICE: 09/21/2018 HISTORY OF PRESENT ILLNESS: This is a very pleasant 83-year-old female who presented to the hospital with nausea, vomiting, dizziness. MRI in the hospital revealed bilateral inferior subacute cerebellar infarcts. She has been admitted to acute inpatient rehabilitation for physical, occupational and speech therapies. The patient has a history of an apparent left second toe amputation along with removal of a large callus on her right foot, and there were subsequent surgical clark left in place. This was apparently done in July. She was seen by Wound Care who removed the clark left open to air, trimmed back the callus on the right foot and she is continued with topical dressing changes at this time. Today, she is having no further nausea, vomiting. She denies dizziness at present, but does note blurry vision with activity. She denies any cough, shortness of air or chest pain. She does note a foul odor of her urine, however, denies dysuria or retention symptoms. She denies any constipation, abdominal pain or diarrhea. She does have neuropathy in her feet, and she notes burning sensation of her heels sporadically. PAST MEDICAL HISTORY: Atrial fibrillation with history of cardioversion, atrial septal defect repair, hysterectomy. Sjogren disease, history of WI x 2, laparoscopic cholecystectomy, peripheral neuropathy, left shoulder replacement, degenerative joint disease, coronary artery disease, hypertension, hard of hearing, right shoulder premorbid deficits. Bilateral calluses to her bunions. History of left toe amputation in 07/2018. ALLERGIES: CODEINE, SULFA ____. HABITS: Nonsmoker, no alcohol use, no illicit drug use. SOCIAL HISTORY: The patient lives alone in a house with 7 steps to enter, all living on one level. She does have basement laundry with 13 steps down, which she does do herself premorbidly. She also has plants that she glover in the basement. She has a cane premorbidly, she was independent with ADLs and IADLs. She has a son and daughter who live nearby. She no longer drives. CURRENT MEDICATIONS: Multivitamin 1 tablet daily, losartan 25 mg daily, aspirin 81 mg daily, vitamin C 500 mg daily, Colace 100 mg twice a day, atorvastatin 20 mg every other day, Eliquis 5 mg twice a day. Voltaren gel q.i.d. topically, Tylenol 650 q.4 hours p.r.n. pain, meclizine 25 mg q.8 hours p.r.n. [facility] [address] [place] [address] HISTORY AND PHYSICAL Name: KAJAL GRIFFITH Room #: 506-1 [facility] IN M.R.#: [id number] Admission: 09/21/18 ������������������ Attend Phys: Celestino Ferguson MD Discharge: ������������������ Date of : 33 Report #: [id number] dizziness or nausea. CODE STATUS: Full code. REVIEW OF SYSTEMS: Remainder of her 14-point review of systems is negative except as listed in HPI. PHYSICAL EXAMINATION: VITAL SIGNS: 154/60, respirations 12, pulse of 84, temperature 98.3. She is 94% oxygen on room air. GENERAL: She is awake, alert. She is oriented to person, place and situation. She was able to recall previous events prior to her admission; however, higher level cognitive reasoning seems impaired. HEENT: Head is normocephalic. Eyes: EOMs are intact. I did not appreciate any nystagmus. ENT: No sinus tenderness, no pharyngitis. NECK: No lymphadenopathy. HEART: Regular rate and rhythm, S1, S2. CHEST: Lungs are clear to auscultation, no crackles, no wheeze. ABDOMEN: Bowel sounds are positive. Soft, nontender, nondistended. GENITOURINARY: No CVA tenderness. EXTREMITIES: She has decreased range of motion, especially of the right upper extremity, but appears functional for daily tasks. Upper extremities,3+ to 4-/5 gross strength. Did reasonably well with [id number] testing bilaterally. No noted clonus. She does have some arthritic changes in her hands, bilateral lower extremity functional range of motion, able to lift into gravity. Negative Homans sign. No foot drop. She does have bilateral lower extremity edema. She is sit to stand with min assist. Gait is mod assist, 5 feet with a front wheel walker. 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 She has a stage 3 pressure ulcer to the right great toe/MTP joint, left foot second toe amputation. NEUROLOGIC: Facies are equal and symmetrical bilaterally. No slurred speech. She has moderate comprehension deficits, mild akke-kf-hixqrjnu cognitive deficits and moderate to severe memory deficits. She also has premorbid peripheral neuropathy, especially further distally. ASSESSMENT: 1. Bilateral cerebellar cerebrovascular accident. 2. Truncal ataxia. 3. Dizziness, nausea and vomiting secondary to cerebrovascular accident, now resolved. 4. Left second great toe amputation in 07/2018. 5. Stage 3 pressure ulcer to her right great toe/MTP joint. 6. Significant memory/cognitive impairment, possible combination of metabolic encephalopathy versus dementia. 7. Chronic atrial fibrillation. 8. Diastolic congestive heart failure. [facility] [address] [place] [address] HISTORY AND PHYSICAL Name: KAJAL GRIFFITH Room #: 506-1 ADM IN M.R.#: [id number] Admission: 09/21/18 ������������������ Attend Phys: Celestnio Ferguson MD Discharge: ������������������ Date of : 33 Report #: [id number] 9. Hypertension. 10. Coronary artery disease with previous myocardial infarction. 11. Sarcopenia. 12. Protein calorie malnutrition. 13. Sjogren syndrome. PLAN: The patient has been admitted to acute inpatient rehabilitation unit for physical, occupational and speech therapies with a goal to return back to her home independently. The patient will have wound care team following for her lower extremities. She will also have Dr. German from Neuropsychology to assess. The patient will have Hospitalist Services to manage acute medical issues. Social Work Services will follow for discharge planning needs. She is on a heart healthy diet. Dietitian will see her to make any supplement recommendations. Please see extensive orders. ��������������������������������������������� ���������������������������������������� By: ��������������������������������������������� [id number] REMI Amezquita /nt
[~2018-09-21 13:40] MED LIST changes: +ANTIVERT25 MG PO
[2018-09-21 16:30] VITALS: BP 156/76
--- NOTE | 2018-09-21 17:45 | NUR ---
1600 PATIENT ARRIVED AND WAS ADMITTED TO ROOM 506. PATIENT IS ALERT AND ORIENTED X4. PATIENT IS SUQU[place], NEEDS HEARING AIDS. PATIENT HAD RIGHT CVA WITH LEFT FACIAL DROOP. PATIENT IS UP WITH ASSIST OF 1 STAFF AND GAIT BELT AND WALKER. PATIENT IS UP IN HER CHAIR FOR DINNER. LUNGS ARE CLEAR. ABD IS SOFT WITH BSX4. PATIENT HAD CALLAS SCRAPED WHILE IN SENIOR SUITES. CALLAS HAS OPTIFOAM IN PLACE. PATIENT HAS S.L. IN HER LEFT AC. PATIENT HAS SOME NEUOPATHY IN HER FEET. FALL AND SAFETY PROTOCOLS IN PLACE. PATIENT SIGNED HER CONSENTS. C/O BACK PAIN. MEDICATED WITH VOLTARIN GEL 1% TO HER LOWER BACK. PATIENT IS PLEASANT AND COOPERATIVE. PT/OT/ST EVALS TO BE DONE IN A.M. WILL CONTINUE TO MONITER.
[2018-09-21 19:30] VITALS: BP 143/72
--- NOTE | 2018-09-22 02:45 | NUR ---
assumed care at approx 1900 evening 09/21. pt sitting up in bed at change of shift alert and oriented x4, appropriate, pleasant, and very talkative. pt up to bathroom with standby assiste tolerating well. pt moves herself freely in bed. pt appears to be sleeping soundly with hourly rounding checks. bed alarm on and call light in reach. will continue to monitor.
[2018-09-22 05:27] LABS: HEMATOCRIT 35.2 % (37.0-47.0); HEMOGLOBIN 11.8 gm/dL (12.0-15.0); MCH 31.4 pg (26.0-34.0); MCHC 33.4 g/dL (28.0-37.0); MCV 93.9 fL (80.0-100.0); RBC 3.75 mil/uL (4.20-5.00); RDW 12.5 % (10.5-14.5); WBC 8.4 thou/uL (4.0-11.0)
[2018-09-22 05:36] LABS: CALCIUM 9.3 mg/dL (8.5-10.1); CREATININE 0.7 mg/dL (0.6-1.0); POTASSIUM 3.7 mmol/L (3.5-5.1)
[2018-09-22 08:37] VITALS: BP 154/60
--- NOTE | 2018-09-22 08:54 | NUR ---
PT REFUSED FLU VACCINE STATES MAKES SICK DOES NOT WANT THIS YEAR.
--- NOTE | 2018-09-22 09:55 | NUR ---
chart review, pt up in recliner chair, a & o x 3, pleasant and able to make her needs know. intro to cm, dcp, transition of care, home health and team meetings. pt reported " live alone in raised ranch home. still cook, do laundry down stairs. have handrail on one side, 12, steps. us pill box sun-sat from medication. independent prior to hospital. have cane and walker if need it. home health chcs is past. no longer drive, kids take me out when need to go. no current primary care dr, he left and have not found new one yet"/yemi. education on dcp, senior clinic " i would like to talk with someone to get started with senior clinic for my dr office, i used them in past and was good"/yemi. cm passed on information to liaison for senior clinic to follow up with pt while she on acute rehab. will cont following as needed for dc needs.
--- NOTE | 2018-09-22 11:24 | NUR ---
WOUND CONSULT: PT. WAS SEEN TODAY BY DR. LEIJA AND MYSELF. PT. IS WELL KNOWN TO THE WOUND CARE TEAM AND WAS BEING FOLLOWED ON THE ACUTE SIDE PRIOR TO TRANSFER TO REHAB. DR. WYATT PAIRED DOWN A CALLOUS ON THE RIGHT MEDIAL/PLANTER SURFACE OF HER FOOT YESTERDAY AND UNCOVERED A SMALL ULCERATION. THERE ARE NO SIGNS OR SYMPTOMS OF INFECTION NOTED AT THIS TIME. RECOMMENDATIONS: WOUND CARE TO RIGHT PLANTER FOOT: GENTLY CLEANSE WITH WOUND CLENASER OR NORMAL SALINE, APPLY XEROFORM TO WOUND BED, COVER WITH BORDERED FOAM, SECURE WITH KERLIX AND TAPE, COMPLETE CARES DAILY AND PRN. PT. AND STAFF NURSE WERE INSTRUCTED ON PLAN OF CARE.
--- NOTE | 2018-09-22 12:46 | NUR ---
CALLED DR BARKER'S OFFICE [phone] TO SCEDULE CONSULT FOR PATIENT FOR CVA NEUROPATHY TREATMENT OPTIONS. LEFT MESSAGE AT 12:48 FOR HIS OFFICE TO CALL US.
--- NOTE | 2018-09-22 15:27 | NUR ---
Patient participated in community reintegration on 09/22/18 with OCCUPATIONAL THERAPY. Refer to documentation by P[facility]O [facility].
--- NOTE | 2018-09-22 15:48 | NUR ---
Pt PARTICIPATED IN COMMUNITY REINTEGRATION WITH OT ON 09/22/18, PLEASE REFER TO OT DOCUMENTATION
[2018-09-22 20:21] VITALS: BP 109/61
--- NOTE | 2018-09-23 03:05 | NUR ---
ASSESSMENT: PT REMAIN ALERT AND ORIENT UP SBA WITH GB AND WALKER TO THE BR. NO BM, DID PASS FLATUS. LIKES SITTING UP IN THE CHAIR. 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 C/O LEG PAIN. RIGHT FOOT DRESSING INTACT. AND LEFT TOES DRESSING INTACT. LEFT AC FLUSED AND SL. VSS, AFEBRILE. GOOD PROGRESS TOWARDS DC GOALS. WILL CONTINUE TO MONITOR.
[2018-09-23 08:55] VITALS: BP 152/93
[2018-09-23 16:06] LABS: COMPLEMENT-C3 147 mg/dL (82-167); COMPLEMENT-C4 20 mg/dL (14-44)
--- NOTE | 2018-09-23 18:21 | NUR ---
ASSUMED CARES AT 0700. PT AWAKE, ALERT AND ORIENTED *4 BUT FORGETFUL. C/O BILATERAL KNEE PAIN 10/09, VOLTAREN GEL APPLIED ORDERED. VITALS REMAINED STABLE. PT HAS BLE EDEMA. WOUND ON RIGHT FOOT FROM CALOUS REMOVAL CLEANED AND DRESSING CHANGED. PT UP WITH 1 PERSON SBA, IMPULSIVE AND FORGETS TO WAIT FOR HELP AFTER PUSHING CALL LIGHT. Q1H VISUAL CHECKS. CALL LIGHT WITHIN REACH. FALL PRECAUTIONS IN PLACE
[2018-09-23 19:48] VITALS: BP 121/44
[2018-09-23 20:57] VITALS: BP 126/56
--- NOTE | 2018-09-23 23:05 | NUR ---
PT ASSESSMENT COMPLETED AND VSS. MEDS GIVEN ORDERED AND WELL TOLERATED. FALL PRECAUTIONS IN PLACE. PT DENIES NEEDS. SLEEPING WELL. WILL CONTINUE TO MONITOR FREQUENTLY.
[2018-09-24 09:41] VITALS: BP 135/66
--- NOTE | 2018-09-24 13:39 | NUR ---
ASSUMED CARES AT 0700. PT ALERT AND ORIENTED X4. ABLE TO VOICE HER NEEDS. [place], POOR EYESIGHT SINCE SHE HAD STROKE, LITTLE SHAKING WHEN WRITING. C/O BILATERAL KNEE PAIN 3/10, VOLTAREN GEL APPLIED ORDERED. VITALS REMAINED STABLE. REASSESSMENT PER CHART. PT HAS BLE EDEMA. WOUND ON RIGHT FOOT FROM CALOUS REMOVAL CLEANED AND DRESSING CHANGED. BS ACTIVE. LAST BM WAS 4 DAYS AGO. GAVE COLACE AND HAD LARGE BM TODAY. PT SAID SHE FEELS BETTER. PT UP WITH 1 PERSON SBA WITH A CANE, PT WANTS TO BE INDEPENDENT, ENCOURAGED PT TO CALL FOR HELP SINCE HER EYE SIGHT POOR NOW. ENCOURAGED PT TO CALL FOR HELP, PT USES CALL LIGHT APPROPRIATELY AND FOLLOW INSTRUCTIONS. C/O EYES DRY. EYE DROPS GIVEN ORDERED. Q1H VISUAL CHECKS. CALL LIGHT WITHIN REACH. FALL PRECAUTIONS IN PLACE. WILL CONTINUE TO MONITOR.
[2018-09-24 19:23] VITALS: BP 109/48
[2018-09-24 20:11] VITALS: BP 112/55
--- NOTE | 2018-09-25 00:04 | NUR ---
PT ASSESSMENT COMPLETED AND VSS. MEDS GIVEN ORDERED AND WELL TOLERATED. FALL PRECAUTIONS IN PLACE. UP TO THE BATHROOM WITH ASST/GAIT/WALKER. VOIDING MODERATE AMOUNT OF YELLOW URINE. SLEEPING WELL. WILL CONTINUE TO MONITOR FREQUENTLY.
[2018-09-25 08:45] VITALS: BP 136/61
--- NOTE | 2018-09-25 10:01 | NUR ---
ASSUMED CARES AT 0700. PT AWAKE, ALERT AND ORIENTED*4. C/O KNEE AND LEFT HIP PAIN 4/, VOLTAREN GEL APPLIED AND PT STATED THAT IT HELPS RELIEVE THE PAIN. VITALS REMAINED STABLE. PT REFUSED RESTASIS EYE DROPS THIS AM, STATED THAT ITS BEEN STINGING ALL DAY AFTER ADMINISTRATION AND SHE PREFERS ARTIFICIAL TEARS FOR DRYNESS. HOSPITALIST NOTIFIED AND DNEW ORDERS RECEIVED. PT'S URINE THIS AM HAD A STRONG ODOR AND WAS VERY CONCENTRATED, PT NOTICED IT TOO AND STATED, " IT STINKS". HOSPITALIST NOTIFIED AND UA ORDERED. PT CONTINUES TO HAVE MILD BLE EDEMA. WOUND ON PLANTER RIGHT CLEANED AND DRESSING CHANGED. PT UP WITH 1 PERSON MIN ASSIST, AMBULATED TO THE BATHROOM AND TOLERATED WELL. Q1H VISUAL CHECKS. CALL LIGHT WITHIN REACH. FALL PRECAUTIONS IN PLACE
[2018-09-25 15:56] LABS: URINE BILIRUBIN NEGATIVE (Negative); URINE BLOOD 2+ (Negative); URINE CLARITY CLEAR; URINE COLOR YELLOW; URINE GLUCOSE-RANDOM* NEGATIVE (Negative); URINE KETONES NEGATIVE (Negative); URINE LEUKOCYTES-REFLEX 3+ (Negative); URINE NITRITE-REFLEX POSITIVE (Negative); URINE PROTEIN (DIPSTICK) NEGATIVE (Negative); URINE UROBILINOGEN 0.2 E.U./dl (0.2-1.0)
[2018-09-25 16:08] LABS: CASTS None Seen /LPF (None Seen); CRYSTALS None Seen /LPF (None Seen); SQUAMOUS 0-3 Few /LPF (0-3); URINE RBC 3-10 Few /HPF (0-2); URINE WBC-REFLEX >25 Many /HPF (0-5)
[2018-09-25 20:00] VITALS: BP 124/60
--- NOTE | 2018-09-26 01:44 | NUR ---
assumed care at approx 1900 evening 09/25. pt sitting up in recliner at change of shift resting. pt pleasant and cooperative and quite talkative. pt took hs meds with water tolerting well. pt assisted with gown change and into bed approx 2100. pt appears to be sleeping soundly with hourly rounding checks. bed alarm on and call light in reach. will continue to monitor.
[2018-09-26 07:45] VITALS: BP 145/88
--- NOTE | 2018-09-26 09:37 | NUR ---
ASSUMED CARES AT 0700. PT AWAKE, ALERT AND ORIENTED *4. VITALS REMAINED STABLE FOR THIS PT. C/O LOWER BACK AND MARIELLE KNEE PAIN, VOLTAREN GEL APPLIED NEEDED. HS STABLE, NON-PITTING EDEMA IN MARIELLE LOWER EXTREMITY, HARI HOSE ON, PULSES 2+/2+. PT IS CONCERNED ABOUT THE DEFORMITY ON HER FEET ( AROUND HER TOES), ASKED WHAT SHE COULD DO TO PREVENT BIG TOES FROM BENDING FURTHER. CONTINUES TO HAVE VERY CONCENTRATED AND FOUL SMELLING URINE, PT ENCOURAGED TO DRINK MORE FLUIDS SHE CONTINUES TO TAKE ANTIBIOTICS FOR UTI. WOUND ON RIGHT PLANTER CLEANED AND DRESSING CHANGED. WOUND CARE FOLLOWING. Q1H VISUAL CHECKS. CALL LIGHT WITHIN REACH. FALL PRECAUTIONS IN PLACE
[2018-09-26 11:10] LABS: ANTI-DNA SCREEN <1 IU/mL (0-9); ANTI-RNP 0.4 AI (0.0-0.9)
[2018-09-26 12:00] VITALS: BP 123/76
[2018-09-26 12:05] VITALS: BP 139/75
[2018-09-26 12:12] VITALS: BP 112/57
[2018-09-26 19:30] VITALS: BP 123/69
--- NOTE | 2018-09-27 00:28 | NUR ---
PT ASSESSMENT COMPLETED AND VSS. MEDS GIVEN ORDERED AND WELL TOLERATED. FALL PRECAUTIONS IN PLACE. UP TO THE BATHROOM WITH ASST/GAIT/WALKER. VOIDING WELL. WILL CONTINUE TO MONITOR FREQUENTLY.
[2018-09-27 08:25] VITALS: BP 141/67
--- NOTE | 2018-09-27 13:39 | NUR ---
team meeting, recommendation : 09/30/18, home health ( pt, ot, st, and nursing. mod i prior to dc.
--- NOTE | 2018-09-27 14:35 | NUR ---
ASSUMED CARE AT SHIFT CHANGE. PT PROGRESSING TOWARDS POC GOALS. A/O X 4, PLESANT, ANXIOUS/FATIGUED AT TIMES. HAD EPISODE OF EXHAUSTION WHEN WORKING WITH OT THIS AFTERNOON, STATES JUST NEEDED TO GO TO BED. PODIATRY CONSULTED FOR FOOT DEFORMITIES. C/O LOW BACK PAIN AFTER NAPPING THIS AFTERNOON, PRN MEDICATION GIVEN. HAD BM AFTER NAP WELL. NO DISTRESS NOTED. VSS. PER TEAM MEETING, PLAN TO DC 3/ TO HOME WITH HH. WILL CONT TO MONITOR AND FOLLOW POC.
[2018-09-27 19:07] LABS: ANA INTERPRETATION Positive (())
[2018-09-27 19:45] VITALS: BP 131/63
--- NOTE | 2018-09-28 03:02 | NUR ---
UP IN CHAIR MOST OF EVENING, CONTACT GUARD ASSIST WALKING TO BATHROOM. VOIDING WELL AND ABLE TO WIPE SELF ONCE THERE. NO SOA WHILE WALKING.
[2018-09-28 04:36] LABS: HEMATOCRIT 33.7 % (37.0-47.0); HEMOGLOBIN 11.4 gm/dL (12.0-15.0); MCH 31.5 pg (26.0-34.0); MCHC 33.9 g/dL (28.0-37.0); MCV 92.9 fL (80.0-100.0); PLATELET COUNT 223 thou/uL (150-400); RBC 3.63 mil/uL (4.20-5.00); RDW 12.5 % (10.5-14.5); WBC 6.1 thou/uL (4.0-11.0)
[2018-09-28 04:41] LABS: CALCIUM 9.5 mg/dL (8.5-10.1); CREATININE 0.7 mg/dL (0.6-1.0); MAGNESIUM 1.8 mg/dL (1.8-2.4); POTASSIUM 3.8 mmol/L (3.5-5.1)
[2018-09-28 05:33] LABS: PLATELET ESTIMATE NORMAL
--- NOTE | 2018-09-28 08:18 | NUR ---
PT IS A&0X4, VERY [place], AMB W/CANE, ENCOURAGED TO USE CALL LIGHT FOR ANY NEEDS, AGREED TO TYLENOL FOR GENERAL ACHES AND PAINS, SENT HOLD/ACK TO RX FOR THE MED BEING GRAYED OUT IN [facility] AND ONE AVAILABLE IN MED BIN. ATE ABOUT 90% OF HER MEAL. TWO TOES MISSING ON LLE AND WOUND ON RLE TO BE ADDRESS THIS SHIFT
[2018-09-28 09:28] VITALS: BP 134/68
--- NOTE | 2018-09-28 10:46 | NUR ---
FAXED REFERRAL TO [facility] SPOKE WITH YAO AND SHE WILL REVIEW ANTICIPATE DC 09/30. DCP TO FOLLOW.
--- NOTE | 2018-09-28 10:55 | NUR ---
cm notified by provider plus that pt was issued fww last admit from 5n. cm visited with pt at bedside rt walker " ok yes i have one at home and have wider one that was my , ok thank you. no need to get me another one from insurance"/yemi. re-education on hh and pt stated " not had in past, "[facility] (pt, ot, st , and nursing), is fine, son was up there last evening and will pick me up later on wednesday since they both work"/yemi. cm left another message for son pedro luis to call cm team back rt dc 09/30/18
--- NOTE | 2018-09-28 13:52 | NUR ---
FAXED REFERRAL TO [facility] SPOKE WITH YAO IN ADM. SHE RECEIVED REFERRAL AND CANNOT ACCEPT DUE TO AT CAPACITY IN THAT AREA WITH NURSING. FAXED REFERRAL TO [facility] SPOKE WITH MICHAEL IN INTAKE AND SHE RECEIVED REFERRAL AND WILL BE ABLE TO ACCEPT PT, AT DISCHARGE. ANTICIPATE DC 09/30. PT. WILL NEED PT/OT/ST/RN. DCP TO FOLLOW.
[2018-09-28 13:55] VITALS: BP 134/68
--- NOTE | 2018-09-28 15:31 | NUR ---
Patient participated in community reintegration on 09/28/18 with SPEECH THERAPY. Refer to documentation by SPEECH THERAPIST.
[2018-09-28 19:14] VITALS: BP 125/62
--- NOTE | 2018-09-29 04:09 | NUR ---
UP TO BATHROOM WITH SBA ONLYUSING HER OWN TRIPOD CANE AND IS ABLE TO DO OWN CARES IN BATHROOM. AFTER VOIDING, SHE IS ABLE TO WASH HANDS AND BRUSH TEETH AT SINK INDEPENDENTLY. NO C/O PAIN, BUT APPRECIATES VOLTAREN GEL TO BILATERAL KNEES.
--- NOTE | 2018-09-29 07:26 | NUR ---
Pt PARTICIPATED IN COMMUNITY REINTEGRATION ON 09/28/[address] P[address] REFER TO ST DOCUMENTATION
--- NOTE | 2018-09-29 10:08 | NUR ---
WOUND FOLLOW UP: PT. WAS SEEN TODAY BY DR. WYATT AND MYSELF. PT. WOUND IS CLINICALLY BETTER AT THIS TIME. PT. IS ABLE TO HAVE SITE OPEN TO AIR WITH NO DRESSING NEEDED. RECOMMENDATIONS: CONTINUE WITH CURRENT PLAN OF CARE. PT. AND STAFF NURSE WERE INSTRUCTED ON PLAN OF CARE.
--- NOTE | 2018-09-29 11:32 | HC ---
[facility] [address] CONSULTATION Name: KAJAL GRIFFITH Room #: 506-1 ADM IN M.R.#: [id number] Admission: 09/21/18 ������������������ Attend Phys: Celestino Ferguson MD Discharge: ������������������ Date of : 33 Report #: [id number] THIS REPORT FOR: //name// CC: Celestino Ferguson FAM unknown Bryce Jacob DATE OF SERVICE: 09/28/2018 INTRODUCTION: The patient is an 83-year-old female who is being seen for podiatric consultation regarding deformities associated with her feet. This patient is well known to me having been seen in my office approximately 8 months ago. Her history as I know includes history of neuropathy possibly associated with her rheumatologic condition and Sjogren syndrome. This pedal neuropathy has left her vulnerable to ulceration and nail injuries that date back several years. Her most recent presentation in my office included evaluation of a small wound on the plantar medial aspect of her right first metatarsophalangeal joint. She has been counseled on numerous occasions regarding load bearing issues relevant to her neuropathy and ulceration development. She has declined and refused the pursuit of specialty footwear in an effort to protect her feet. Current admission at [facility] for rehabilitation following a stroke. PAST MEDICAL HISTORY: Includes history of stroke, congestive heart failure, peripheral neuropathy involving her feet, hypertension, coronary artery disease and Sjogren's syndrome with rheumatologic manifestations. ALLERGIES: THE PATIENT HAS SENSITIVITY TO CODEINE, BACTRIM, OXYCONTIN, METHYLPREDNISOLONE. PAST SURGICAL HISTORY: Includes hysterectomy, cholecystectomy, shoulder replacement, heart surgery and amputation of her left second and third toes. SOCIAL HISTORY: The patient has been independent, nonsmoker. Denies usage of alcohol and illicit drugs. Her rehabilitation social status has been noted. PHYSICAL EXAMINATION: Pedal exam, dorsalis pedis, posterior tibial pulses are graded at +2/4 bilaterally. Capillary refill time is within normal limits. Neurologically, the patient lacks protective threshold utilizing Tignall-Wanda monofilament to the ankle level. Musculoskeletal exam reveals severe pedal deformities with end-stage bilateral hallux abductovalgus deformity, subluxation of the first metatarsophalangeal joints. There are rigidly contracted hammertoes 2 through 5 on the right and 4th and 5th on the left. Evidence of a well-healed amputation site on the left foot. The patient's right foot is covered with dressing and investigation of the wound [address] [address] CONSULTATION Name: KAJAL GRIFFITH Room #: 506-1 ADM IN M.R.#: [id number] Admission: 09/21/18 ������������������ Attend Phys: Celestino Ferguson MD Discharge: ������������������ Date of : 33 Report #: [id number] site on the right first MPJ reveals a 1 cm superficial uninfected ulcer surrounded by moderate hyperkeratotic tissue consistent with neuropathic ulceration. There is a padded dressing with Xeroform gauze covering this wound as per the wound care specialists. Wound demonstrates no tracking, deep extension or gross drainage. Additionally, there is no evidence of cellulitis at this time. The patient's bilateral foot position is profoundly abnormal with rearfoot valgus and complete collapse of the medial arch on both feet. Inspection of the patient's footwear reveals insubstantial pair of "Keds" styled footwear, which are inappropriate for this patient's condition. Her nails are thickened consistent with onychomycosis. No other pathology is noted at this time. IMPRESSION: 1. Status post stroke, progressing well with rehab. 2. Right plantar first metatarsophalangeal joint foot wound, chronic, associated with peripheral neuropathy and uninfected at this time. 3. 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 PLAN: The patient's condition has been reviewed with her again. Her stroke has left her without much memory. Regarding my conversations with her, in fact, she did not recognize me when I first introduced myself today. I spent time of course evaluating her feet and more importantly reviewing her need for specialty footwear. She has declined and been reluctant to pursue specialty footwear including extra depth shoes and custom insoles for protection of her most vulnerable areas. These issues were raised with her again and in fact on her last visit with her in our office, I have discussed this with her daughter as well. Her wound status is stable and currently she is receiving excellent management of this condition with our internet network specialist. I am happy to be available for further consultation in the future. Currently, her physical status is one that would place her at greater risk for foot surgery and the prospects for any meaningful correction of these deformities is a low. It has been a pleasure having the opportunity of meeting with the patient. We are pleased to follow up with her upon request. ��������������������������������������������� <ELECTRONICALLY SIGNED> ���������������������������������������� By: John Manuel DPM ��������������������������������������������� 09/29/18 [id number] John Manuel DPM /tim
[2018-09-29 12:03] VITALS: BP 148/76
--- NOTE | 2018-09-29 12:30 | NUR ---
ASSUMED CARES AT 0700. PT AWAKE, ALERT AND ORIENTED*4, AUGUSTINE. C/O PAIN AROUND HER KNEES, VOLTAREN GEL APPLIED SCHEDULED. VITALS REMAINED STABLE. WOUND ON RIGHT FOOT CLEANED AND LANA. PT CONTINUES TO HAVE BLE EDEMA, EXTREMITIES ELEVATED WHEN AT REST. PT UP WITH SBA, AMBULATED WITH CANE AND GAITBELT AND TOLERATED WELL. Q1H VISUAL CHECKS. CALL LIGHT WITHIN REACH. FALL PRECAUTIONS IN PLACE
[2018-09-29 19:43] VITALS: BP 139/55
--- NOTE | 2018-09-30 00:33 | NUR ---
PT ALERT AND ORIENTED X 4. MODIFIED INDEPENDENT IN ROOM WITHOUT DIFFICULTY. PT DENIES PAIN OR DISCOMFORT. BED ALARM ON FOR SAFETY. PT APPEARS TO BE SLEEPING ON HOURLY ROUNDS.
[2018-09-30 08:15] VITALS: BP 140/80
[2018-09-30] MEDS ORDERED: VOLTAREN GEL 1100 G2 TOP (09:59)
[2018-09-30] MEDS ORDERED: ELIQUIS5 MG PO (09:59)
[2018-09-30] MEDS ORDERED: ANTIVERT25 MG PO (09:59)
[2018-09-30] MEDS ORDERED: LIPITOR40 MG PO (09:59)
--- NOTE | 2018-09-30 12:53 | NUR ---
PT. DISCHARGING TODAY TO HOME WITH [facility]. FAXED DC ORDERS/SUMMARY TO [facility] AND SPOKE WITH ARA IN ADM. SHE RECEIVED DC ORDERS AND WILL NOTIFY PT. OF TIME OF VISITS.
--- NOTE | 2018-09-30 13:12 | NUR ---
PT ALERT AND ORIENTED TIMES FOUR. VSS, 100%RA. PT DENIES PAIN/SOA. PT WORKED WELL WITH PT/OT. PT UP AB SOLOMON IN ROOM WITH STEADY GAIT. PT EXCITED FOR POSSIBLE DISCHARGE TODAY. PT PROGRESSING TOWRADS POC GOALS.
--- NOTE | 2018-10-01 16:00 | HC ---
[facility] [place] [address] CONSULTATION Name: KAJAL GRIFFITH Room #: 506-1 [facility] M.R.#: [id number] Admission: 09/21/18 ������������������ Attend Phys: Celestino Ferguson MD Discharge: 09/30/18 ������������������ Date of : 31 Report #: [id number] THIS REPORT FOR: //name// CC: Celestino Ferguson FAM cary Jacob DATE OF SERVICE: 09/24/2018 ATTENDING PHYSICIAN: Celestino Ferguson MD CAP SIZER: Jimbo Hadley, PhD CLINICAL PRESENTATION: The patient is an 83-year-old female admitted to the rehabilitation unit at [facility] for comprehensive inpatient rehabilitation to improve functional mobility, activities of daily living and self-care and mental status secondary to 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 Her diagnoses on admission to rehab included truncal ataxia, functional mobility and ADL deficits, dizziness, nausea and vomiting are improved, bilateral chronic foot wounds, cognitive impairment with possible toxic metabolic encephalopathy, chronic atrial fibrillation, chronic diastolic heart failure, hypertension, coronary artery disease status post MT and Sjogren syndrome. A complete description of her medical condition and history can be found in her medical record. Neuropsychological consultation was requested to provide assistance in the assessment of cognitive and emotional status and to provide recommendations and services. Prior to this most recent admission, the patient was living independently in her own home. 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 She is a high school graduate with 2 years of college. 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 She has 2 children. TECHNIQUES UTILIZED: Clinical interview, review of medical records, staff consultation and behavioral observation, Mini-Mental status exam 2 standard version and verbal fluency assessment and clock drawing. EXAMINATION FINDINGS: The patient was alert and cooperative with the assessment. She does not present with aphasia. Her thoughts are logical and goal oriented. There is no evidence of thought disorder. She does not report auditory or visual hallucinations, anxiety or depression. Her hearing is severely impaired. She describes her symptoms to include difficulty with word finding and vision. There is no history of alcohol abuse or prior treatment for mood/behavior disorder. She described herself as very independent. [facility] [address] [place] [address] CONSULTATION Name: KAJAL GRIFFITH Room #: 506-1 [facility]#: [id number] Admission: 09/21/18 ������������������ Attend Phys: Celestino Ferguson MD Discharge: 09/30/18 ������������������ Date of : 31 Report #: [id number] Her performance on the Mini-Mental status exam 2 brief version is within normal limits with a raw score of 14 of 16. The patient was 3/3 for initial registration, 4/5 for orientation to time, 5/[address] and 2/3 for immediate recall of 3 items after a brief time delay and distraction. Performance on the MMSE 2 standard version is within normal limits with a raw score 26 of 30. She was 4/5 for serial 7's. The patient had difficulty with copying a simple geometric design. Some difficulty with clock drawing was noted in regard to visual spatial construction. Letter fluency was within normal limits with a T score of 61 and percentile rank of 86. Category fluency was within normal limits and in the average range with a T score of 47 and percentile rank of 38. The patient is showing fairly well-maintained cognitive functioning. Deficits are primarily upper extremity dexterity likely related to visual spatial and perceptual, constructive deficits secondary to her stroke. 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 RECOMMENDATIONS: The patient will require increased assistance upon her return home with instrumental activities of daily living. Educational information should be provided to her family regarding the stroke and need for increased support to maintain safety. The patient is alert and oriented and can actively assist in her care. Thank you very much for allowing me to provide the consultation on this patient. ��������������������������������������������� <ELECTRONICALLY SIGNED> ���������������������������������������� By: Jimbo Hadley, PhD ��������������������������������������������� 10/01/18 1600 1550 0750 Jimbo Hadley, PhD /nt
--- NOTE | 2018-10-03 10:34 | NUR ---
JUST SPOKE WITH ADINA FROM [facility] SHE HAD DR. THUAN DIA DOWN PT'S PCP AND HE NO LONGER SEES PT. AT THE OFFICE AND PT. WAS TO START [facility]. ALSO ADINA FROM [facility] SAID SHE SPOKE WITH PT'S SON AND LET HIM KNOW WHAT TIME SHE WAS COMING BY FOR HER HH VISIT AND WHEN SHE ARRIVED THERE WAS NOT ANSWER AT THE DOOR AND SHE COULD HEAR THE TV ON. SO SHE NOTIFIED THE AGAIN TODAY AND STILL NOT ANSWER SHE TRIED CALLING THE SON AND HOME PHONE AND NO ANSWER. [facility] NOTIFIED PRITI BABB AND SHE IS GOING TO REACH OUT TO THE PT AND HER SON AND SHE WILL FOLLOW UP WITH [facility].
--- NOTE | 2018-10-03 16:44 | NUR ---
PT. DISCHARGED SATURDAY 09/30 TO HOME WITH [facility]. SPOKE WITH ADM. [place]LE[place] AND THEY TRIED 3 TIMES TO SEE AND SPEAK WITH PT. BY PHONE. FIRST TIME THEY SPOKE WITH SON AND ARRANGED TIME OF VISIT AND WHEN ADINA SHOWED UP AT THE HOUSE TV WAS ON BUT NOBODY ANSWERED THE DOOR. SO ADINA FROM [facility] HAS TRIED TWICE TO CALL PT. AND NO ANSWER THEY WILL TRY ONE MORE TIME TO REACH PT.
== END 2018-09-30 17:22 | disposition home health service (06) | DRG 64 ==
LOC: SICU 13:40 → ENTRNSPT 09-30 16:54
PROVIDERS: Internal Medicine; Internal Medicine Rheumatology; Nurse Practitioner; ADMIT Physical Medicine & Rehabilitation
DX: I63.9 Cerebral infarction, unspecified (principal); L89.513 Pressure ulcer of right ankle, stage 3; I50.32 Chronic diastolic (congestive) heart failure; E46 Unspecified protein-calorie malnutrition; N39.0 Urinary tract infection, site not specified; R27.0 Ataxia, unspecified; I48.2 Chronic atrial fibrillation; I11.0 Hypertensive heart disease with heart failure; I25.10 Atherosclerotic heart disease of native coronary artery without angina pectoris; M35.00 Sjogren syndrome, unspecified; G62.9 Polyneuropathy, unspecified; Z60.2 Problems related to living alone; M62.84 Sarcopenia; H91.93 Unspecified hearing loss, bilateral; G47.00 Insomnia, unspecified; S90.922A Unspecified superficial injury of left foot, initial encounter; B96.20 Unspecified Escherichia coli [E. coli] as the cause of diseases classified elsewhere; M21.611 Bunion of right foot; S90.921A Unspecified superficial injury of right foot, initial encounter; F01.50 Vascular dementia, unspecified severity, without behavioral disturbance, psychotic disturbance, mood disturbance, and anxiety; X58.XXXA Exposure to other specified factors, initial encounter; I25.2 Old myocardial infarction; Z90.710 Acquired absence of both cervix and uterus; Z90.49 Acquired absence of other specified parts of digestive tract; Z88.6 Allergy status to analgesic agent; Z88.2 Allergy status to sulfonamides; Z79.899 Other long term (current) drug therapy; Z79.82 Long term (current) use of aspirin; Z79.01 Long term (current) use of anticoagulants; Z68.27 Body mass index [BMI] 27.0-27.9, adult; Z88.8 Allergy status to other drugs, medicaments and biological substances; Y93.89 Activity, other specified; Y92.89 Other specified places as the place of occurrence of the external cause; Y99.8 Other external cause status
CPT/HCPCS: 10112

== ENCOUNTER 2020-06-17 22:05 | Emergency (ER) | payer OTHER ==
[~2020-06-17] VITALS: Ht 162.6 cm; Wt 63.5 kg
[2020-06-17 22:26] LABS: HEMATOCRIT 29.7 % (37.0-47.0); HEMOGLOBIN 10.1 gm/dL (12.0-15.0); MCH 32.1 pg (26.0-34.0); MCHC 33.8 g/dL (28.0-37.0); PLATELET COUNT 191 thou/uL (150-400); RBC 3.13 mil/uL (4.20-5.00); RDW 14.2 % (10.5-14.5); WBC 6.1 thou/uL (4.0-11.0)
[2020-06-17 22:28] LABS: ANION GAP 12 mmol/L (7-16); BUN 40 mg/dL (7-18); CALCIUM 9.4 mg/dL (8.5-10.1); CHLORIDE 99 mmol/L (98-107); CO2 27 mmol/L (21-32); CREATININE 1.2 mg/dL (0.6-1.0); GLUCOSE 115 mg/dL (74-106); POTASSIUM 3.7 mmol/L (3.5-5.1); SODIUM 138 mmol/L (136-145)
[2020-06-17 22:38] LABS: ALBUMIN 3.5 g/dL (3.4-5.0); DIRECT BILIRUBIN 0.2 mg/dL (<0.1-0.2); SGOT 50 U/L (15-37); SGPT 37 U/L (30-65); TOTAL BILIRUBIN 0.4 mg/dL (0.2-1.0); TOTAL PROTEIN 8.2 g/dL (6.4-8.2); TROPONIN-I <0.06 ng/mL (<0.06)
[2020-06-17 23:21] LABS: ABSOLUTE NEUTROPHILS 3.4 thou/uL (1.4-8.2); PLATELET ESTIMATE NORMAL
[2020-06-18] MEDS ORDERED: MECLIZINE HCL25 MG PO (02:41)
--- NOTE | 2020-06-18 07:37 | EKG ---
[facility] [place] [address] ELECTROCARDIOGRAM REPORT Name: KAJAL GRIFFITH Room #: [facility]#: [id number] Admission: 06/17/20 Attend Phys: Discharge: Date of : 31 Report #: [id number] THIS REPORT FOR: cc: [facility] - Clinic physician unknown [facility] - Clinic physician unknown Duy Sandoval MD [facility] ~ THIS REPORT FOR: //name// [facility] ED Test Date: 2020-06-17 Test Time: 22:14:19 Pat Name: KAJAL GRIFFITH Department: Room: Gender: F 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: [facility] : 1935 Requested By: Alee Purvis Order Number: [id number] MD: Duy Sandoval Measurements Intervals [place] Rate: 75 P: TN: QRS: -47 QRSD: 135 T: 122 QT: 447 QTc: 500 Interpretive Statements Atrial fibrillation Left bundle branch block Compared to ECG 09/19/2018 15:43:06 No significant change was found Electronically Signed On 06-18-2020 7:37:02 FLORICULTURIST by Duy Sandoval [email or web address] <ELECTRONICALLY SIGNED> By: Duy Sandoval MD, FAC 06/18/20 0737 13 Duy Sandoval MD, [facility] /EPI
[2020-06-18 10:00] VITALS: BP 120/57
== END 2020-06-18 12:38 | disposition home or self-care (01) ==
LOC: ER 22:05
PROVIDERS: Emergency Medicine
DX: R42 Dizziness and giddiness (principal); R11.2 Nausea with vomiting, unspecified; I10 Essential (primary) hypertension; I25.10 Atherosclerotic heart disease of native coronary artery without angina pectoris; I25.2 Old myocardial infarction; I48.91 Unspecified atrial fibrillation; Z90.710 Acquired absence of both cervix and uterus; Z79.899 Other long term (current) drug therapy; Z79.82 Long term (current) use of aspirin; Z88.2 Allergy status to sulfonamides; Z88.5 Allergy status to narcotic agent; Z88.8 Allergy status to other drugs, medicaments and biological substances

== ENCOUNTER 2021-03-11 20:08 | Emergency (ER) | payer OTHER ==
[~2021-03-11] VITALS: Ht 167.6 cm; Wt 63.5 kg
[~2021-03-11 20:08] MED LIST changes: +MECLIZINE HCL25 MG PO
[2021-03-11 20:28] LABS: ABSOLUTE NEUTROPHILS 6.6 thou/uL (1.4-8.2); BASOPHILS 0.6 % (0.0-2.0); EOSINOPHILS 0.4 % (0.0-3.0); HEMATOCRIT 31.7 % (37.0-47.0); HEMOGLOBIN 10.7 gm/dL (12.0-15.0); LYMPHOCYTES 12.8 % (24.0-44.0); MCH 32.1 pg (26.0-34.0); MCHC 33.9 g/dL (28.0-37.0); MCV 94.8 fL (80.0-100.0); MONOCYTES 7.7 % (1.0-8.0); PLATELET COUNT 179 thou/uL (150-400); POLYS 78.5 % (36.0-66.0); RBC 3.35 mil/uL (4.20-5.00); RDW 13.1 % (10.5-14.5); WBC 8.4 thou/uL (4.0-11.0)
[2021-03-11 20:37] LABS: ANION GAP 9 mmol/L (7-16); BUN 29 mg/dL (7-18); CALCIUM 9.1 mg/dL (8.5-10.1); CHLORIDE 103 mmol/L (98-107); CO2 30 mmol/L (21-32); CREATININE 0.9 mg/dL (0.6-1.0); GLUCOSE 101 mg/dL (74-106); POTASSIUM 3.7 mmol/L (3.5-5.1); SODIUM 142 mmol/L (136-145)
[2021-03-11 20:42] LABS: APTT 30.2 Seconds (24.5-32.8); INR 1.07; PROTIME 11.6 Seconds (10.5-12.1)
[2021-03-11 20:47] LABS: ALBUMIN 3.2 g/dL (3.4-5.0); AMYLASE 65 U/L (25-115); DIRECT BILIRUBIN 0.2 mg/dL (<0.1-0.2); LIPASE 213 U/L (73-393); MAGNESIUM 1.8 mg/dL (1.8-2.4); PHOSPHORUS 3.7 mg/dL (2.5-4.9); SGOT 33 U/L (15-37); SGPT 29 U/L (30-65); TOTAL BILIRUBIN 0.7 mg/dL (0.2-1.0); TOTAL PROTEIN 8.1 g/dL (6.4-8.2); TROPONIN-I <0.06 ng/mL (<0.06)
[2021-03-11 21:36] LABS: URINE BILIRUBIN NEGATIVE (Negative); URINE BLOOD NEGATIVE (Negative); URINE CLARITY CLEAR; URINE COLOR YELLOW; URINE GLUCOSE-RANDOM* NEGATIVE (Negative); URINE KETONES NEGATIVE (Negative); URINE LEUKOCYTES-REFLEX NEGATIVE (Negative); URINE NITRITE-REFLEX NEGATIVE (Negative); URINE PROTEIN (DIPSTICK) NEGATIVE (Negative); URINE UROBILINOGEN 0.2 E.U./dl (0.2-1.0)
[2021-03-11] MEDS ORDERED: ULTRAM 50MG TAB50 MG PO (21:43)
[2021-03-11 22:17] VITALS: BP 156/79
--- NOTE | 2021-03-12 07:11 | EKG ---
[place] [address] [facility] [place] [address] ELECTROCARDIOGRAM REPORT Name: KAJAL GRIFFITH Room #: [facility]#: [id number] Admission: 03/11/21 Attend Phys: Discharge: 03/11/21 Date of : 31 Report #: [id number] [facility] ED Test Date: 2021-03-11 Test Time: 20:30:40 Pat Name: KAJAL GRIFFITH Department: Room: Gender: F Squadron Worker: : 1935 Requested By: Brando Almazan Order Number: [id number] MD: Collin Stevens Measurements Intervals [place] Rate: 94 P: MS: QRS: -55 QRSD: 133 T: 113 QT: 373 QTc: 467 Interpretive Statements Atrial fibrillation LVH with IVCD, LAD and secondary repol abnrm Compared to ECG 06/17/2020 22:14:19 Intraventricular conduction delay now present Left ventricular hypertrophy now present Early repolarization now present Left bundle-branch block no longer present Electronically Signed On 03-12-2021 7:11:25 CDT by Collin Stevens [email or web address] <ELECTRONICALLY SIGNED> By: Collin Stevens MD, FAC 03/12/21 0711 2030 29 Collin Stevens MD, [facility] /EPI
== END 2021-03-11 22:31 | disposition home or self-care (01) ==
LOC: ER 20:08
PROVIDERS: Emergency Medicine
DX: S46.911A Strain of unspecified muscle, fascia and tendon at shoulder and upper arm level, right arm, initial encounter (principal); I48.91 Unspecified atrial fibrillation; I25.2 Old myocardial infarction; G62.9 Polyneuropathy, unspecified; I25.10 Atherosclerotic heart disease of native coronary artery without angina pectoris; I10 Essential (primary) hypertension; Z98.890 Other specified postprocedural states; Z90.711 Acquired absence of uterus with remaining cervical stump; Z79.891 Long term (current) use of opiate analgesic; Z79.82 Long term (current) use of aspirin; Z79.899 Other long term (current) drug therapy; Z88.5 Allergy status to narcotic agent; Z88.2 Allergy status to sulfonamides; Z88.8 Allergy status to other drugs, medicaments and biological substances; W19.XXXA Unspecified fall, initial encounter; Y93.89 Activity, other specified; Y92.89 Other specified places as the place of occurrence of the external cause; Y99.8 Other external cause status